=== PATIENT | male | born 1975 | race American Indian/Alaskan Native ===

== ENCOUNTER → 2019-09-13 12:07 | Outpatient (CLI) | payer OTHER, SELFPAY ==
[2019-09-15 04:11] LABS: COVID19 Sendout Not Detected (Not Detected)
== END ==
PROVIDERS: PCP Family Medicine; Visit Provider Family Medicine
DX: R05 Cough (principal)
CPT/HCPCS: 87635

== ENCOUNTER → 2019-10-17 14:37 | Outpatient (CLI) | payer OTHER, SELFPAY | PROVIDERS: PCP Family Medicine; Visit Provider Family Medicine | DX: R31.9 Hematuria, unspecified (principal) | CPT/HCPCS: 87086 ==

== ENCOUNTER → 2021-01-21 09:03 | Outpatient (CLI) | payer OTHER, SELFPAY ==
[2021-01-21 09:49] LABS: Add Manual Diff / Slide Review NO; Basophils Absolute Auto 100 /uL (0-100); Basophils Percent Auto 0.6 % (0-2); Eosinophils Absolute Auto 400 /uL (0-450); Eosinophils Percent Auto 4.3 % (2-4); Hematocrit 47.9 % (41-53); Lymphocytes Absolute Auto 2400 /uL (1100-4500); Lymphocytes Percent Auto 25.8 % (25-40); Mean Corpuscular HGB Conc 33.4 % (30-36); Mean Corpuscular Hemoglobin 28.7 PG (26-34); Mean Corpuscular Volume 85.9 fL (80-100); Monocytes Absolute Auto 600 /uL (0-900); Monocytes Percent Auto 6.8 % (3-14); Neutrophils Absolute Auto 5700 /uL (1500-7000); Neutrophils Percent Auto 62.5 % (50-75); Platelet Count 185 X10^3/uL (150-400); Red Blood Cell Count 5.57 X10^6/uL (4.5-5.9); Red Cell Distribution Width 14.8 % (11.6-14.8); White Blood Cell Count 9.2 X10^3/uL (4.5-11.0)
[2021-01-21 10:00] LABS: Hemoglobin A1C% w Est Avg Glu 7.7 % (4.0-6.0)
[2021-01-21 10:05] LABS: Alanine Aminotransferase 37 IU/L (<50); Albumin 4.1 g/dL (3.5-5.0); Albumin Globulin Ratio 1.3 (1.0-2.8); Alkaline Phosphatase 61 U/L (38-126); Aspartate Aminotransferase 27 IU/L (17-59); BUN Creatinine Ratio 15.9 (6-22); Bilirubin Total 0.5 mg/dL (0.2-1.3); Blood Urea Nitrogen 13 mg/dL (9-20); Calcium 9.3 mg/dL (8.4-10.2); Carbon Dioxide 28 mmol/L (22-32); Chloride 107 mmol/L (98-107); Cholesterol 171 mg/dL (140-199); Estimated Glomerular Filt Rate > 60.0 mL/min (>60); Globulin 3.1 g/dL (1.7-4.1); Glucose 140 mg/dL (70-100); HDL Cholesterol 35 mg/dL (40-60); HEMOLYSIS < 15 (0-50); LDL Cholesterol Calculated 78 mg/dL (<100); Potassium 4.1 mmol/L (3.4-5.1); Sodium 141 mmol/L (137-145); Total Protein 7.2 g/dL (6.3-8.2); Triglycerides 292 mg/dL (35-150)
[2021-01-21 10:30] LABS: Free T3, Triiodothyronine Free 3.49 pg/mL (2.77-5.27); Free T4, Direct Thyroxine 0.86 ng/dL (0.78-2.19)
[2021-01-21 10:43] LABS: Thyroid Stimulating Hormone 2.23 uIU/mL (0.47-4.68)
[2021-01-21 11:17] LABS: Creatinine Urine Random 147.1 mg/dL
[2021-01-21 11:20] LABS: Microalbumi Creatinin Ratio Ur 46.2 ug/mg CR (<30); Microalbumin Urine Random 6.8 mg/dL (0-1.6)
== END ==
PROVIDERS: PCP Family Medicine; Referring Provider Family Medicine; Visit Provider Family Medicine
DX: E11.9 Type 2 diabetes mellitus without complications (principal); Z79.4 Long term (current) use of insulin
CPT/HCPCS: 36415; 80053; 80061; 82043; 82570; 83036; 84439; 84443; 84481; 85025

== ENCOUNTER → 2021-04-11 11:07 | Outpatient (CLI) | payer OTHER, SELFPAY ==
[2021-04-11 12:08] LABS: COVID19 -Nasal RAPID Negative (Negative)
== END ==
PROVIDERS: PCP Family Medicine; Visit Provider Physician Assistant
DX: Z20.822 Contact with and (suspected) exposure to COVID-19 (principal)
CPT/HCPCS: 87635

== ENCOUNTER → 2021-04-24 11:37 | Outpatient (CLI) | payer OTHER, SELFPAY ==
[2021-04-24 12:36] LABS: Hemoglobin A1C% w Est Avg Glu 7.3 % (4.0-6.0)
== END ==
PROVIDERS: PCP Family Medicine; Referring Provider Family Medicine; Visit Provider Family Medicine
DX: E11.9 Type 2 diabetes mellitus without complications (principal); Z79.4 Long term (current) use of insulin
CPT/HCPCS: 36415; 83036

== ENCOUNTER → 2022-04-03 09:08 | Outpatient (CLI) | payer OTHER, SELFPAY ==
[2022-04-03 10:17] LABS: Add Manual Diff / Slide Review NO; Basophils Absolute Auto 0 /uL (0-100); Basophils Percent Auto 0.5 % (0-2); Eosinophils Absolute Auto 200 /uL (0-450); Eosinophils Percent Auto 2.1 % (2-4); Hematocrit 46.6 % (41-53); Hemoglobin 15.8 g/dL (13.5-17.5); Lymphocytes Absolute Auto 2400 /uL (1100-4500); Lymphocytes Percent Auto 24.3 % (25-40); Mean Corpuscular HGB Conc 33.8 % (30-36); Mean Corpuscular Hemoglobin 28.7 PG (26-34); Mean Corpuscular Volume 84.9 fL (80-100); Monocytes Absolute Auto 600 /uL (0-900); Monocytes Percent Auto 5.7 % (3-14); Neutrophils Absolute Auto 6800 /uL (1500-7000); Neutrophils Percent Auto 67.4 % (50-75); Platelet Count 231 X10^3/uL (150-400); Red Blood Cell Count 5.49 X10^6/uL (4.5-5.9); Red Cell Distribution Width 14.7 % (11.6-14.8)
[2022-04-03 10:29] LABS: Alanine Aminotransferase 38 IU/L (<50); Albumin 4.4 g/dL (3.5-5.0); Albumin Globulin Ratio 1.3 (1.0-2.8); Alkaline Phosphatase 79 U/L (38-126); Aspartate Aminotransferase 27 IU/L (17-59); BUN Creatinine Ratio 15.7 (6-22); Bilirubin Total 0.4 mg/dL (0.2-1.3); Blood Urea Nitrogen 13 mg/dL (9-20); Calcium 8.8 mg/dL (8.4-10.2); Carbon Dioxide 24 mmol/L (22-32); Chloride 106 mmol/L (98-107); Cholesterol 176 mg/dL (140-199); Estimated Glomerular Filt Rate > 60 mL/min (>60); Globulin 3.3 g/dL (1.7-4.1); Glucose 166 mg/dL (70-100); HDL Cholesterol 30 mg/dL (40-60); HEMOLYSIS < 15 (0-50); LDL Cholesterol Calculated 78 mg/dL (<100); Potassium 4.1 mmol/L (3.4-5.1); Sodium 141 mmol/L (137-145); Total Protein 7.7 g/dL (6.3-8.2); Triglycerides 342 mg/dL (35-150)
[2022-04-03 10:30] LABS: Hemoglobin A1C% w Est Avg Glu 7.4 % (4.0-6.0)
[2022-04-03 10:51] LABS: Creatinine Urine Random 192.2 mg/dL
[2022-04-03 10:55] LABS: Microalbumi Creatinin Ratio Ur 16.1 ug/mg CR (<30); Microalbumin Urine Random 3.1 mg/dL (0-1.6)
== END ==
PROVIDERS: PCP Family Medicine; Referring Provider Family Medicine; Visit Provider Family Medicine
DX: E11.9 Type 2 diabetes mellitus without complications (principal); Z79.4 Long term (current) use of insulin
CPT/HCPCS: 36415; 80053; 80061; 82043; 82570; 83036; 85025

== ENCOUNTER 2022-06-15 12:14 | Emergency (ER) | payer OTHER, SELFPAY ==
[2022-06-15 12:19] VITALS: BP 188/113; PULSE 83; RESP 16; O2SAT 97; BMI 52.9
--- NOTE | 2022-06-15 12:28 | DI.CT.S_ITS ---
PROCEDURE: CT ANGIO HEAD AND NECK INDICATIONS: L facial droop TECHNIQUE: Pre-contrast 4.5 mm thick sections acquired from the foramen magnum to the vertex. After the administration of intravenous contrast, 1 mm thick sections acquired from the aortic arch through the [place]. Post-contrast 4.5 mm thick sections then re-acquired from the foramen magnum to the vertex. 3-dimensional bqptelm-tfeggxahx-rktrrdihjr (MIP) and/or volume rendering reformats were acquired of the central intracranial vasculature and neck separately. For radiation dose reduction, the following was used: automated exposure control, adjustment of mA and/or kV according to patient size. COMPARISON: None. FINDINGS: Image quality: Excellent. BRAIN: CSF spaces: Ventricles are normal in size and shape. Basal cisterns are patent. No extra-axial fluid collections. Brain: No midline shift. No intracranial bleeds or masses. Cope-white matter interface appears intact. Skull and face: Calvarium and facial bones appear intact, without suspicious lesions. Orbits appear normal. Sinuses: Sinuses and mastoids are clear. HEAD CT ANGIOGRAPHY: Anterior circulation: Intracranial internal carotid arteries are normal in size and flow. The flow within the paired anterior cerebral arteries is normal and symmetric. The flow within the middle cerebral arteries is normal and symmetric. The anterior communicating artery is seen. No aneurysms are seen. Posterior circulation: Visualized portions of the vertebral arteries demonstrate normal caliber, and join to form a normal appearing basilar artery. Flow within the posterior cerebral arteries is normal and symmetric. No aneurysms are seen. NECK CT ANGIOGRAPHY: Carotid system: The great vessels demonstrate a conventional anatomy as they arise from the aortic arch. The origins of the common carotid arteries appear patent. The common carotid arteries demonstrate normal caliber and courses. The bifurcation regions are both widely patent. The internal carotid arteries demonstrate normal calibers and courses. Posterior circulation: The origins of the vertebral arteries both appear widely patent. The more superior extracranial portions of both vertebral arteries also demonstrate normal courses and calibers. They join to form a normal appearing basilar artery. Soft tissues: Visualized neck soft tissues demonstrate no suspicious abnormalities. Bones: No suspicious bony lesions. Visualized cervical spine appears normally aligned. Cervical degenerative disc disease and arthropathy reversal the normal cervical lordosis and moderate central stenosis C5-6 and C6-7 IMPRESSION: Unremarkable CT angiogram of the head and neck without evidence of large vessel occlusion, significant stenosis or aneurysm. Multilevel degenerative disc disease and arthropathy in the cervical spine associated with at least moderate central stenosis C5-6 and C6-7 Any quantitative measurements of stenosis were performed using NASCET criteria. Approved by: Diaz Gordon M.D. on 06/15/2022 at 12:20
--- NOTE | 2022-06-15 12:28 | DI.RAD.S_ITS ---
PROCEDURE: XR CHEST 1V INDICATIONS: left sided facial droop since last night TECHNIQUE: One view of the chest was acquired. COMPARISON: None. FINDINGS: Surgical changes and devices: None. Lungs and pleura: Lungs are clear. No pleural effusions or pneumothorax. Low lung volumes accentuate pulmonary interstitium and heart size. Mediastinum: Mediastinal contours appear normal. Heart size is normal. Bones and chest wall: No suspicious bony lesions. Overlying soft tissues appear unremarkable. IMPRESSION: No acute cardiopulmonary findings Approved by: Diaz Gordon M.D. on 06/15/2022 at 12:05
[2022-06-15 12:52] LABS: Add Manual Diff / Slide Review NO; Basophils Absolute Auto 100 /uL (0-100); Basophils Percent Auto 1.1 % (0-2); Eosinophils Absolute Auto 200 /uL (0-450); Eosinophils Percent Auto 1.5 % (2-4); Hematocrit 46.1 % (41-53); Hemoglobin 15.6 g/dL (13.5-17.5); Lymphocytes Absolute Auto 2800 /uL (1100-4500); Lymphocytes Percent Auto 25.2 % (25-40); Mean Corpuscular HGB Conc 33.8 % (30-36); Mean Corpuscular Hemoglobin 28.6 PG (26-34); Mean Corpuscular Volume 84.6 fL (80-100); Monocytes Absolute Auto 600 /uL (0-900); Monocytes Percent Auto 5.5 % (3-14); Neutrophils Absolute Auto 7300 /uL (1500-7000); Neutrophils Percent Auto 66.7 % (50-75); Platelet Count 230 X10^3/uL (150-400); Red Blood Cell Count 5.45 X10^6/uL (4.5-5.9); Red Cell Distribution Width 14.2 % (11.6-14.8); White Blood Cell Count 10.9 X10^3/uL (4.5-11.0)
[2022-06-15 13:02] LABS: PTT Partial Thromboplastin Tim 42 SECONDS (26-36)
[2022-06-15 13:03] LABS: Alanine Aminotransferase 41 IU/L (<50); Albumin 4.4 g/dL (3.5-5.0); Albumin Globulin Ratio 1.3 (1.0-2.8); Alkaline Phosphatase 72 U/L (38-126); Aspartate Aminotransferase 27 IU/L (17-59); BUN Creatinine Ratio 14.8 (6-22); Bilirubin Total 0.7 mg/dL (0.2-1.3); Blood Urea Nitrogen 13 mg/dL (9-20); Calcium 9.4 mg/dL (8.4-10.2); Carbon Dioxide 27 mmol/L (22-32); Chloride 102 mmol/L (98-107); Creatine Kinase 83 U/L (55-170); Estimated Glomerular Filt Rate > 60 mL/min (>60); Globulin 3.4 g/dL (1.7-4.1); Glucose 181 mg/dL (70-100); HEMOLYSIS 16 (0-50); Lipase 72 U/L (23-300); Magnesium 1.9 mg/dL (1.6-2.3); Sodium 140 mmol/L (137-145); Total Protein 7.8 g/dL (6.3-8.2)
[2022-06-15 13:14] LABS: Troponin I < 0.012 ng/mL (0.01-0.034)
--- NOTE | 2022-06-15 14:31 | ED.NEUROSD ---
HPI - Neuro Symptoms/Deficit General Chief Complaint: Neuro Symptoms/Deficit Stated Complaint: numbness on left side of face Time Seen by Provider: 06/15/22 12:46 History of Present Illness HPI Narrative: Patient is a 46-year-old male history of diabetes hypertension presenting today with left-sided facial droop. He said he noticed he had difficulty eating last night and that his left lip numb. He has not had any difficulty speaking his has not noticed any gibberish. This morning he is having a difficult time closing his eye. He has no other weakness no chest pain shortness of breath. Under lot of stress at work. He is not had any fever chills. He denies any abdominal pain. On Anticoagulants: No Related Data Previous Rx's Medication Instructions Recorded bupropion HCl 75 mg tablet See Rx Instructions .Route 03/25/21 .COMPLEX #60 tabs albuterol sulfate 0.63 mg/3 mL 0.63 mg (3 mL) inhalation QID PRN 04/24/21 solution for nebulization shortness of breath or wheezing #75 mL loratadine-pseudoephedrine ER 10 1 tab PO DAILY PRN allergy 09/20/21 mg-240 mg tablet,extended symptoms #14 tabs [id number] (Claritin-D 24 Hour) albuterol sulfate 2.5 mg/3 mL See Rx Instructions .Route 11/15/21 (0.083 %) solution for nebulization .COMPLEX #75 mL insulin syringes (disposable) 1 mL #500 ea 01/09/22 albuterol sulfate 90 mcg/actuation See Rx Instructions .Route 03/17/22 aerosol inhaler .COMPLEX #18 grams lisinopril 10 mg tablet 10 mg PO DAILY #90 tabs 03/17/22 atorvastatin 10 mg tablet 10 mg PO BEDTIME #90 tabs 04/07/22 insulin human U-100 NPH-regulr See Rx Instructions .Route 04/07/22 70-30 mix 100 unit/mL subcutaneous .COMPLEX #60 mL susp (Humulin 70/30 U-100 Insulin) acyclovir 800 mg tablet 800 mg PO 5XD #35 tabs 06/15/22 artificial tears(hypromellose) 0.3 2 drp EYE-LEFT .q4hw PRN dry 06/15/22 % eye drops eye(s) #30 mL prednisone 20 mg tablet 40 mg PO DAILY #10 tabs 06/15/22 white petrolatum-mineral oil 83 0.25 inch EYE-LEFT BEDTIME #3.5 06/15/22 %-15 % eye ointment (Artificial grams Tears (petrolatum/mineral oil)) Allergies Allergy/AdvReac Type Severity Reaction Status Date / Time No Known Drug Allergies Allergy Verified 09/20/21 10:30 Review of Systems Review of Systems ROS Unobtainable: All systems reviewed & are unremarkable except as noted in HPI and below Hematologic/Lymphatic On Anticoagulants: No Patient History Medical History (Updated 06/15/22 @ 15:06 by Jess Dominguez DO) Asthma with exacerbation BMI 50.0-59.9, adult Depression HTN (hypertension) Hypertriglyceridemia without hypercholesterolemia Insulin dependent type 2 diabetes mellitus PREST[place] on CPAP Otitis media Urinary tract infection Weight loss advised Family History Father Cancer Mother Cancer Diabetes mellitus Hyperlipidemia Hypertension Depression Stroke Social History Smoking Status: Former smoker alcohol intake: current substance use type: marijuana Smoking Status: Former smoker Exam Initial Vital Signs Initial Vital Signs: Vital Signs Pulse Rate 83 06/15/22 12:19 Respiratory Rate 16 06/15/22 12:19 Blood Pressure 188/113 H 06/15/22 12:19 Pulse Oximetry 97 06/15/22 12:19 Oxygen Delivery Method 06/15/22 12:19 GENERAL: Alert pleasant 46-year-old male and in no acute distress. HEENT: Head atraumatic,EOMI, pupils reactive, left-sided facial droop noted, inability to close left eye CARDIOVASCULAR: Regular rate and rhythm without murmurs, rubs or gallops. RESPIRATORY: Breath sounds equal bilaterally, no wheezes rales or rhonchi. ABDOMEN: Soft, nontender. Normoactive bowel sounds all 4 quadrants. No guarding or rebound. EXTREMITIES: Normal range of motion, no clubbing or edema. Neurovascularly intact NEUROLOGICAL: Alert and oriented x4.Normal gait and speech. Cranial nerves II through XII grossly intact. Good oqgreq-rs-rrbn, good lxvv-zt-uqcd, strength equal bilaterally, no dysarthria or aphasia, sensation in tact to soft touch bilaterally, no visual changes, left facial droop inability to wrinkle left forehead inability to close left eye SKIN: Warm, dry, no laceration, no petechiae, no rashes or lesions. Scores NIH Stroke Scale Level of Conciousness: Alert, keenly responsive Ask month/age: Answers both questions correctly. Open/close eyes, close hand: Performs both tasks correctly Best gaze horizontal: Normal Visual arriaga: No visual loss Facial palsy: Complete paralysis, absence of movement in the upper and lower face (Partial paralysis of both upper and lower face) Left arm drift: No drift for full 10 sec Right arm drift: No drift for full 10 sec Left leg drift: No drift for full 5 sec Right leg drift: No drift for full 5 sec Limb ataxia: Absent Sensory on face/arms/legs: Normal, no sensory loss Best language: No aphasia, normal Dysarthria: Normal Extinction or inattention: No abnormality Total NIH Stroke scale score: 3 Course Orders Ordered: ED Orders 06/15/22 12:28 CT angio head and neck Stat XR chest 1V Stat EKG-12 Lead Stat 06/15/22 12:34 Complete Blood Count AUTO DIFF Stat Comprehensive Metabolic Panel Stat Lipase Stat Magnesium Stat Partial Thromboplastin Time Stat Prothrombin Time INR Stat Troponin & CK Cardiac Panel Stat Vital Signs Vital signs: Vital Signs - 8 hr 06/15/22 12:19 06/15/22 15:18 Pulse Rate 83 80 Respiratory Rate 16 16 Blood Pressure 188/113 H 176/108 H Pulse Oximetry 97 97 Oxygen Delivery Method Room Air Room Air MDM - Neuro Symptoms/Deficit Lab Data Result diagrams: 06/15/22 12:34 06/15/22 12:34 Labs: Lab Results 06/15/22 06/15/22 06/15/22 Range/Units 12:34 12:34 12:34 WBC 10.9 (4.5-11.0) X10^3/uL RBC 5.45 (4.5-5.9) X10^6/uL Hgb 15.6 (13.5-17.5) g/dL Hct 46.1 (41-53) % MCV 84.6 (80-100) fL MCH 28.6 (26-34) PG MCHC 33.8 (30-36) % RDW 14.2 (11.6-14.8) % Plt Count 230 (150-400) X10^3/uL Neut % (Auto) 66.7 (50-75) % Lymph % (Auto) 25.2 (25-40) % [place] % (Auto) 5.5 (3-14) % Eos % (Auto) 1.5 L (2-4) % Baso % (Auto) 1.1 (0-2) % Neut # (Auto) 7300 H (4290-9915) /uL Lymph # (Auto) 2800 (4647-4456) /uL [place] # (Auto) 600 (0-900) /uL Eos # (Auto) 200 (0-450) /uL Baso # (Auto) 100 (0-100) /uL PT 12.0 (10.1-12.7) SECONDS INR 1.0 (0.9-1.3) APTT 42 H (26-36) SECONDS Sodium 140 (137-145) mmol/L Potassium 4.0 (3.4-5.1) mmol/L Chloride 102 (98-107) mmol/L Carbon Dioxide 27 (22-32) mmol/L BUN 13 (9-20) mg/dL Creatinine 0.88 (0.66-1.25) mg/dL Estimated GFR > 60 (>60) mL/min BUN/Creatinine Ratio 14.8 (6-22) Glucose 181 H (70-100) mg/dL Calcium 9.4 (8.4-10.2) mg/dL Magnesium 1.9 (1.6-2.3) mg/dL Total Bilirubin 0.7 (0.2-1.3) mg/dL AST 27 (17-59) IU/L ALT 41 (<50) IU/L Alkaline Phosphatase 72 (38-126) U/L Total Creatine Kinase 83 (55-170) U/L CK-MB (CK-2) TNP CK-MB (CK-2) Rel Index TNP Troponin I < 0.012 (0.01-0.034) ng/mL Total Protein 7.8 (6.3-8.2) g/dL Albumin 4.4 (3.5-5.0) g/dL Globulin 3.4 (1.7-4.1) g/dL Albumin/Globulin Ratio 1.3 (1.0-2.8) Lipase 72 (23-300) U/L Imaging Data CTA - brain/neck: Radiologist's Impression: CT Scan Report Signed Patient: Grayson López MR#: [id number] : 1975 Acct:[id number] Age/Sex: 46 / M Date of Service: 06/15/22 Loc: ED Accession Number: [id number] ?? Procedure: CT angio head and neck Ordering Provider: Jess Dominguez D.O. PROCEDURE:? CT ANGIO HEAD AND NECK ? INDICATIONS:? L facial droop ? TECHNIQUE:? Pre-contrast 4.5 mm thick sections acquired from the foramen magnum to the vertex.? After the administration of intravenous contrast, 1 mm thick sections acquired from the aortic arch through the [place].? Post-contrast 4.5 mm thick sections then re-acquired from the foramen magnum to the vertex.? 3-dimensional trxmwpk-refdrkcrl-jrmgjlikuc (MIP) and/or volume rendering reformats were acquired of the central intracranial vasculature and neck separately. For radiation dose reduction, the following was used:? automated exposure control, adjustment of mA and/or kV according to patient size.? ? COMPARISON:? None. ? FINDINGS:? Image quality:? Excellent.? ? BRAIN:? CSF spaces:? Ventricles are normal in size and shape.? Basal cisterns are patent.? No extra-axial fluid collections.? ? Brain:? No midline shift.? No intracranial bleeds or masses.? Cope-white matter interface appears intact.? ? Skull and face:? Calvarium and facial bones appear intact, without suspicious lesions.? Orbits appear normal.? ? Sinuses:? Sinuses and mastoids are clear.? ? HEAD CT ANGIOGRAPHY:? Anterior circulation:? Intracranial internal carotid arteries are normal in size and flow.? The flow within the paired anterior cerebral arteries is normal and symmetric.? The flow within the middle cerebral arteries is normal and symmetric.? The anterior communicating artery is seen.? No aneurysms are seen.? ? Posterior circulation:? Visualized portions of the vertebral arteries demonstrate normal caliber, and join to form a normal appearing basilar artery.? Flow within the posterior cerebral arteries is normal and symmetric.? No aneurysms are seen.? ? NECK CT ANGIOGRAPHY:? Carotid system:? The great vessels demonstrate a conventional anatomy as they arise from the aortic arch.? The origins of the common carotid arteries appear patent.? The common carotid arteries demonstrate normal caliber and courses.? The bifurcation regions are both widely patent.? The internal carotid arteries demonstrate normal calibers and courses.? ? Posterior circulation:? The origins of the vertebral arteries both appear widely patent.? The more superior extracranial portions of both vertebral arteries also demonstrate normal courses and calibers.? They join to form a normal appearing basilar artery.? ? Soft tissues:? Visualized neck soft tissues demonstrate no suspicious abnormalities.? ? Bones:? No suspicious bony lesions.? Visualized cervical spine appears normally aligned.? Cervical degenerative disc disease and arthropathy reversal the normal cervical lordosis and moderate central stenosis C5-6 and C6-7 ? ? IMPRESSION:? ? Unremarkable CT angiogram of the head and neck without evidence of large vessel occlusion, significant stenosis or aneurysm. ? Multilevel degenerative disc disease and arthropathy in the cervical spine associated with at least moderate central stenosis C5-6 and C6-7 ? Any quantitative measurements of stenosis were performed using NASCET criteria.? Approved by: Diaz Gordon M.D. on 06/15/2022 at 12:20? Chest x-ray: Radiologist's Impression: Grayson saldaña MR#: [id number] : 1975 Acct:[id number] Age/Sex: 46 / M Date of Service: 06/15/22 Loc: ED Accession Number: [id number] ?? Procedure: XR chest 1V Ordering Provider: Jess Dominguez D.O. PROCEDURE:? XR CHEST 1V ? INDICATIONS:? left sided facial droop since last night ? TECHNIQUE:? One view of the chest was acquired.? ? COMPARISON:? None. ? FINDINGS:? ? Surgical changes and devices:? None.? ? Lungs and pleura:? Lungs are clear.? No pleural effusions or pneumothorax.? Low lung volumes accentuate pulmonary interstitium and heart size. ? Mediastinum:? Mediastinal contours appear normal.? Heart size is normal.? ? Bones and chest wall:? No suspicious bony lesions.? Overlying soft tissues appear unremarkable.? ? IMPRESSION:? No acute cardiopulmonary findings ? ? ? Approved by: Diaz Gordon M.D. on 06/15/2022 at 12:05? ECG Data Interpretation: Normal sinus rhythm rate 64 MN interval 170 QRS [address] changes no T-wave inversions MDM Narrative Medical decision making narrative: Patient is a 46-year-old male with obesity hypertension diabetes presenting today left-sided facial droop that started yesterday. He is outside the window for any tPA he has no other focal deficits. Actually presents more like a Elise's palsy with inability close eye and forehead involvement. Workup in the emergency department is negative. Head CT angio does not show any large vessel occlusion. Blood work is overall reassuring without sign of DKA or acute kidney injury or cardiac problem. At this time based on cyst symptoms I suspect more of a Elise's palsy versus CVA. Supportive care only given antivirals prednisone and artificial eyedrops Discharge Plan Departure Patient Disposition: Home Clinical Impression: Left-sided Elise's palsy Instructions: DI for [place] Palsy Activity Restrictions/Additional Instructions: *You have been diagnosed with Elise's palsy *What to do: At this time I hope this spontaneously improves for you, it can last for weeks to months. *Continue to take medications as directed --> SENT TO [facility] [place] Prednisone 40 mg once a day for 5 days this can cause increase in your blood sugars you may need more insulin Acyclovir 5 times a day for 7 days Artificial eyedrops every 3 hours while awake try the ointment at night he may also need an eye patch at night *Follow up with your primary care provider in 2-3 days or call [phone] *Return to ER if you should have increasing symptoms weakness numbness tingling chest pain fever or any new, worsening or concerning symptoms Prescriptions: New prednisone 20 mg tablet 40 mg PO DAILY Qty: 10 0RF acyclovir 800 mg tablet 800 mg PO 5XD Qty: 35 0RF Rx Instructions: space evenly during waking hours artificial tears(hypromellose) 0.3 % drops 2 drp EYE-LEFT .q4hw PRN (Reason: dry eye(s)) Qty: 30 0RF Artificial Tears ([place]/min) 83-15 % ointment 0.25 inch EYE-LEFT BEDTIME Qty: 3.5 0RF No Action loratadine-pseudoephedrine [Claritin-D 24 Hour] 10-240 mg tablet extended release 24 hr 1 tab PO DAILY PRN (Reason: allergy symptoms) Qty: 14 0RF bupropion HCl 75 mg tablet See Rx Instructions .ROUTE .COMPLEX Qty: 60 5RF Dose Instruction: take one tablet by mouth daily for 1 week, then increase to one tablet twice daily if needed Rx Instructions: take one tablet by mouth daily for 1 week, then increase to one tablet twice daily if needed albuterol sulfate 2.5 mg /3 mL (0.083 %) solution for nebulization See Rx Instructions .ROUTE .COMPLEX Qty: 75 1RF Dose Instruction: inhale one vial (2.5mg) via nebulizer four times daily As Needed for shortness of breath or wheezing Rx Instructions: inhale one vial (2.5mg) via nebulizer four times daily As Needed for shortness of breath or wheezing (DME) insulin syringes (disposable) 1 mL syringe See Rx Instructions .Route Qty: 500 3RF Rx Instructions: For twice a day insulin injections atorvastatin 10 mg tablet 10 mg PO BEDTIME Qty: 90 3RF Humulin 70/30 U-100 Insulin 100 unit/mL (70-30) suspension See Rx Instructions .ROUTE .COMPLEX Qty: 60 11RF Dose Instruction: inject 80 units subcutaneously every morning and 60 units every night at bedtime Rx Instructions: inject 80 units subcutaneously every morning and 60 units every night at bedtime albuterol sulfate 0.63 mg/3 mL solution for nebulization 0.63 mg inhalation QID PRN (Reason: shortness of breath or wheezing) Qty: 75 0RF lisinopril 10 mg tablet 10 mg PO DAILY Qty: 90 1RF albuterol sulfate 90 mcg/actuation HFA aerosol inhaler See Rx Instructions .ROUTE .COMPLEX Qty: 18 11RF Dose Instruction: INHALE TWO PUFFS BY MOUTH EVERY SIX HOURS NEEDED FOR WHEEZING or shortness of breath Rx Instructions: INHALE TWO PUFFS BY MOUTH EVERY SIX HOURS NEEDED FOR WHEEZING or shortness of breath Referrals: Trung Helton DO [Primary Care Provider] -
[2022-06-15 15:18] VITALS: BP 176/108; PULSE 80; RESP 16; O2SAT 97
== END 2022-06-15 15:20 | disposition home or self-care (01) ==
PROVIDERS: Emergency Provider Emergency Medicine; PCP Family Medicine
DX: G51.0 Bell's palsy (principal); R29.703 NIHSS score 3; Z79.899 Other long term (current) drug therapy
CPT/HCPCS: 70496; 70498; 71045; 80053; 82550; 83690; 83735; 84484; 85025; 85610; 85730; 93005; 99283; 99284; Q9967

== ENCOUNTER → 2022-07-10 09:45 | Outpatient (CLI) | payer OTHER, SELFPAY ==
--- NOTE | 2022-07-25 16:58 | DIAB.MNT ---
Initial Diabetes Medical Nutrition Therapy Assessment Name: Grayson López (Rivas) Date: 07/10/22 Time: -9259r Dx: Type II Diabetes Provider: Danie Hathaway presents for initial diabetes visit. States he has had DM for 10 years. Has lost weight since dx, 425# at dx. States with 100# loss he was able to adequate manage BG with diet. Endorses life stress as main barrier to health changes. Easier to choose eating out/fast food when feeling stressed. Reports mental health concerns with his . has two children. 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 H/o utilizing counseling. Considering [facility] for resources. Feels he needs coping strategies. Stress also with health concerns. Recent h/o [place] Palsy, much improved now. States men in his family usually do not live past 60 years. FH of ETOH and DM. Feels motivated to manage his health to live longer. Tried Metformin, could not tolerate GI SE. Reports when he makes healthy food choices he does not need much insulin. Diet Recall: 730a: breakfast burrito at [employer] 12p: [employer] or sub sandwich or grocery store chx dinner: cooks beef with veg and 1c potatoes or veggies and fish with 1c mac salad eats out twice per day: breakfast and lunch Avoids snack or has low carb options: pickled veg, pork rinds Anthropometrics: Ht: 5'11 Wt: 379# last PCP visit Physical Activity: 3000 steps per day with work. 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 Reports BG over 200 he feels fatigue. If HS BG is 100-130mg/dl, does not take insulin. Diabetes Medications: NPH 70/30 100u in morning and 160u in evening Pertinent Labs: hgA1c 03/2022 7.4% Past Medical History: (Last Updated 04/07/22 @ 10:25 by Trung Helton DO) Asthma with exacerbation BMI 50.0-59.9, adult Depression HTN (hypertension) Hypertriglyceridemia without hypercholesterolemia Insulin dependent type 2 diabetes mellitus [place] on CPAP Otitis media Urinary tract infection Weight loss advised Nutrition Rx: CCD, Plate Method Nutrition Diagnosis: - Predicted excessive CHO intake r/t stress and stage of change aeb diet recall and pt report - Physical inactivity r/t no additional exercise program aeb pt report <7000 steps per day - Predicted excessive kcal intake r/t eating out occurrences aeb pt report Intervention: This participant was very receptive. Provided appropriate educational handouts. Discussed the following topics: Completed intake assessment. Discussed barriers to care. Reviewed lunch ideas and reducing eating out Counseling resources and link of mental health and DM BG goals and trends Potential stress management techniques Created SMART goals for patient self-care and success. Goals: Check out clinic counseling Bring lunch 2 x per week Bring meter next visit Follow-up: [facility] follow-up in 3-4 weeks Inge Doss RDN, [facility]ENE Certified Diabetes Care and Window/Distribution Clerk P: [phone] Thank you for this referral
== END ==
PROVIDERS: PCP Family Medicine; Referring Provider Family Medicine; Visit Provider Family Medicine
DX: E11.9 Type 2 diabetes mellitus without complications (principal); Z71.3 Dietary counseling and surveillance; Z79.4 Long term (current) use of insulin
CPT/HCPCS: 97802

== ENCOUNTER → 2022-08-05 09:49 | Outpatient (CLI) | payer OTHER, SELFPAY ==
--- NOTE | 2022-08-05 11:24 | DIAB.MNTFU ---
Follow-up Diabetes Medical Nutrition Therapy Assessment Name: Grayson López (Rivas) Date: 08/05/22 Time: 10-1050a Dx: Type II Diabetes Rivas presents today for DM follow-up. Reports improved lunches with cooking more at work 2-3x per week. Finances is a concern, so he has been trying to eat out less and choose affordable options at the grocery store. cooking more pro and veggies for lunch. Reports his most challenging time with BG and food portions is at dinner. cooks. Often frozen or canned veg with pro and carb (rice or noodles x 2c or more). 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 Enjoys cooked meals. Stress may be the main factor in his ability to manage diet and DM. Slight increase in stress at work with new work order system, but states they are trying to hire someone for him. Has not yet researched counseling options. Feels it may be beneficial to bring to next visit for meal planning. Anthropometrics: Ht: 5'11 Wt: 379# last PCP visit Physical Activity: 3000 steps per day with work. 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 Self-Monitoring Blood Glucose: Continues to check FBG and pre dinner, some after dinner. Reports FBG often low 100s, pre dinner 160s, and after dinner often in 200s due to carb portions. Forgot his meter today. Diabetes Medications: NPH 70/30 100u in morning and 160u in evening Pertinent Labs: hgA1c 03/2022 7.4% Past Medical History: (Last Updated 04/07/22 @ 10:25 by Trung Helton DO) Asthma with exacerbation BMI 50.0-59.9, adult Depression HTN (hypertension) Hypertriglyceridemia without hypercholesterolemia Insulin dependent type 2 diabetes mellitus PRESTON on CPAP Otitis media Urinary tract infection Weight loss advised Nutrition Rx: Kcal: 2100-220 Carbohydrates: Daily: 130-230g Meal: 45-60g Snack:15-30g Nutrition Diagnosis: - Predicted excessive CHO intake r/t stress and stage of change aeb diet recall and pt report- improved/in progress - Physical inactivity r/t no additional exercise program aeb pt report <7000 steps per day- cont - Predicted excessive kcal intake r/t eating out occurrences aeb pt report - improved Intervention: This participant was very receptive. Provided appropriate educational handouts. Discussed the following topics: Blood sugar review and trends. Impact of food intake on results. Plate Method, brief carbohydrate counting-- will go into detail next visit Affordable veggie options Stress management resources: provided [facility] phone numbers for counseling Created SMART goals for patient self-care and success. Goals: Check out clinic counseling- in progress Bring lunch 2 x per week- met Bring meter next visit- not met Bring to next visit for meal planning- new Measure carbs at dinner to 1.5c - new Call counseling numbers- new Follow-up: [facility] follow-up in 3 weeks Inge Doss RDN, [facility] Certified Diabetes Care and Embedded Developer P: [phone] Thank you for this referral
== END ==
PROVIDERS: PCP Family Medicine; Referring Provider Family Medicine; Visit Provider Family Medicine
DX: E11.9 Type 2 diabetes mellitus without complications (principal); Z79.4 Long term (current) use of insulin; Z71.3 Dietary counseling and surveillance
CPT/HCPCS: 97803

== ENCOUNTER → 2022-08-28 10:21 | Outpatient (CLI) | payer OTHER, SELFPAY ==
--- NOTE | 2022-09-12 09:10 | DIAB.FU ---
Follow-up Diabetes Education Assessment Name: Grayson López (Rivas) Date: 08/28/22 Time: 10:40-11:50 am Dx: Type II Diabetes Rivas presents for follow-up DM visit. States he still is stressed with work and home life. Reports he called [facility] for counseling information a few days ago and is waiting on insurance and provider referral. States finances have been difficult lately. Due to this he endorses increased rice and noodle intake. Continues to have stir trejo veggies and chicken for lunch at work. Successful in bringing lunch to work at least 2x per week, less eating out. Today he is increasingly stressed about home life and dynamic with . The intention was to have his attend today's visit for meal planning, but she was unable to attend. BG have increased this week, he attributes this to increased carb intake. May also be impacted by increased stress, stress eating? Interested in CGM. Self-Monitoring Blood Glucose: significant increase in BG since last visit. Reported low 100s for FBG last visit. now seeing some 200s. Date Pre Post Pre Post Pre Post HS 08/19 201 3/8 152 3/9 234 /10 132 /14 154 /15 220 16 178 Diabetes Medications: NPH 70/30 100u in morning and 160u in evening Pertinent Labs: hgA1c 03/2022 7.4% Past Medical History: (Last Updated 04/07/22 @ 10:25 by Trung Helton DO) Asthma with exacerbation BMI 50.0-59.9, adult Depression HTN (hypertension) Hypertriglyceridemia without hypercholesterolemia Insulin dependent type 2 diabetes mellitus PRESTON on CPAP Otitis media Urinary tract infection Weight loss advised Intervention: This participant was very receptive. Provided appropriate educational handouts. Discussed the following topics: Recent blood sugar results and trends Impact of stress and carb intake on recent results Ways to mitigate high carb intake at meals on a budget Stress management and following up on therapy resources Potential for CGM personal device. Benefits and use of CGM. Created SMART goals for patient self-care and success. Goals: Bring to next visit for meal planning- in progress Measure carbs at dinner to 1.5c - in progress Call counseling numbers- met Follow up with [facility] today- new Contact provider prn for referral for therapy- new Follow-up: [facility] follow-up in 4 weeks Inge Doss RDN, [facility] Certified Diabetes Care and Ribbon Hand P: [phone] Thank you for this referral
== END ==
PROVIDERS: PCP Family Medicine; Referring Provider Family Medicine; Visit Provider Family Medicine
DX: E11.9 Type 2 diabetes mellitus without complications (principal); Z79.4 Long term (current) use of insulin; Z71.3 Dietary counseling and surveillance
CPT/HCPCS: G0108

== ENCOUNTER → 2022-10-01 14:50 | Outpatient (CLI) | payer OTHER, SELFPAY ==
--- NOTE | 2022-10-09 08:34 | DIAB.FU ---
Follow-up Diabetes Education Assessment Name: Grayson López (Rivas) Date: 10/01/22 Time: 325-350p Dx: Type II Diabetes Provider: Danie Hathaway presents today for follow-up DM visit. States he started counseling. States BG have been in the low 200s due to being somewhat inconsistent with insulin at night. Continues same regimen of NPH 70/30 100u am and 160u pm. Interested in CGM placement today to know how BG are being impacted by lifestyle and medication. Self-Monitoring Blood Glucose: Low 200s. Higher than last visit with most FBG 150-200mg/dl. Diabetes Medications: NPH 70/30 100u in morning and 160u in evening Pertinent Labs: hgA1c 03/2022 7.4% Past Medical History: (Last Updated 04/07/22 @ 10:25 by Trung Helton, DO) Asthma with exacerbation BMI 50.0-59.9, adult Depression HTN (hypertension) Hypertriglyceridemia without hypercholesterolemia Insulin dependent type 2 diabetes mellitus PRESTON on CPAP Otitis media Urinary tract infection Weight loss advised Intervention: This participant was very receptive. Provided appropriate educational handouts. Discussed the following topics: Recent blood sugar results and trends Medication management, setting alarms for insulin CGM education, demo of placement, pt placed CGM and verbalized understanding of use (FSL2). Created SMART goals for patient self-care and success. Goals: Follow up with [facility] today- met Contact provider prn for referral for therapy- met Email [facility] about CGM in one week- new Set alarms for insulin- new Follow-up: [facility] follow-up in 3-4 weeks. If Rivas likes the CGM, [facility] will coordinate with provider about ordering personal CGM for more BG awareness and hopefully improved management. Inge Doss RDN, [facility] Certified Diabetes Care and Art Department Head P: [phone] Thank you for this referral
== END ==
PROVIDERS: PCP Family Medicine; Referring Provider Family Medicine; Visit Provider Family Medicine
DX: E11.9 Type 2 diabetes mellitus without complications (principal); Z79.4 Long term (current) use of insulin; Z71.3 Dietary counseling and surveillance
CPT/HCPCS: G0108

== ENCOUNTER → 2022-11-20 12:51 | Outpatient (CLI) | payer OTHER, SELFPAY ==
--- NOTE | 2022-12-04 11:39 | DIAB.FU ---
Follow-up Diabetes Education Assessment Name: Grayson López (Rivas) Date: 11/20/22 Time: 105-2p Dx: Type II Diabetes Rivas presents for DM follow-up. Reports continued stress with personal life and work. Continues seeing counselor, which he feels is effective. Also reports kipping dinner a few times this week when is not up for cooking. Has been working on reducing carbs at lunch, ie tuna salad on lettuce. Notices improved BG with preparing his own lunch vs eating out. Eating out 3x per week, which historically is an improvement. Cut out diet soda and coffee. Increased water to 1/2 gallon per day. Reports BP has been running higher, and states he is not taking BP med due to Se of cough. Reports PMH of opiate abuse, and he feels pills can be a trigger for him. Rather injections. Taking HS insulin more consistently. Since he is on two injections of 70/30 per day, not 3, his insurance will not cover CGM. Plans to discuss options with provider. Self-Monitoring Blood Glucose: Reports evening readings and after breakfast in the 200s. When he was wearing FSL CGM numbers seemed improved, though was having lunch elevations. Diabetes Medications: NPH 70/30 100u in morning and 160u in evening Pertinent Labs: hgA1c 03/2022 7.4% Past Medical History: (Last Updated 04/07/22 @ 10:25 by Trung Helton DO) Asthma with exacerbation BMI 50.0-59.9, adult Depression HTN (hypertension) Hypertriglyceridemia without hypercholesterolemia Insulin dependent type 2 diabetes mellitus PRESTON on CPAP Otitis media Urinary tract infection Weight loss advised Intervention: This participant was very receptive. Provided appropriate educational handouts. Discussed the following topics: Recent blood sugar results and trends Medication management: potential for change in regimen if medically necessary to improve BG and also would qualify for CGM through insurance, discuss with provider Review of general nutrition recommendations and current intake Stress management and BG BP and DM impact on complication risk Created SMART goals for patient self-care and success. Goals: Call [facility] about status of CGM approval- met Take HS insulin consistently- met Reduce lunch portions- met Chat with PCP about BP med Se and options- new Try to incorporate some you time for stress management- new Follow-up with [facility] regarding CGM if insulin regimen changes- new Follow-up: [facility] follow-up recommended. This RD will be on leave until Nov. Will follow-up at that time. Provided potential resources for support in the interim. Inge Doss, [facility] Certified Diabetes Care and Addressing Machine Operator P: [phone] Thank you for this referral
== END ==
PROVIDERS: Family Provider Family Medicine; PCP Family Medicine; Referring Provider Family Medicine; Visit Provider Family Medicine
DX: E11.9 Type 2 diabetes mellitus without complications (principal); Z79.4 Long term (current) use of insulin; Z71.3 Dietary counseling and surveillance
CPT/HCPCS: G0108

== ENCOUNTER 2023-04-21 08:11 | Day surgery (SDC) | payer OTHER, SELFPAY ==
--- NOTE | 2023-04-21 | PATH_ITS ---
[facility] Accession Number: [id number] No. of containers..03 Tissue . 01 Material submitted: . PART A: colon - ASCENDING POLYP PART B: colon - TRANSVERSE POLYP PART C: sigmoid colon - SIGMOID POLYP . 01 Diagnosis: A. COLON, ASCENDING, POLYP BIOPSY: - TUBULAR ADENOMA. -- B. COLON, TRANSVERSE, POLYP BIOPSY: - SESSILE SERRATED ADENOMA. -- C. COLON, SIGMOID, POLYP BIOPSY: - NO POLYP IS SEEN DESPITE MULTIPLE LEVELS ASSESSMENT. - FIBROVASCULAR TISSUE, AND ONE BENIGN COLONIC CRYPT IS SEEN. TXN 04/30/2023 1044 Local . 01 Electronically signed: . Tawfeq MD Jimbo, Pathologist NPI- [id number] . 01 Gross description: . Part A: ASCENDING POLYP: Received in formalin is 1 fragment(s) of coates, soft tissue measuring 0.4 x 0.4 x 0.3 cm submitted entirely in 1 cassette(s) Part B: TRANSVERSE POLYP: Received in formalin are 3 fragment(s) of coates, soft tissue measuring 0.3 x 0.2 x 0.2 cm to 0.7 x 0.5 x 0.3 cm submitted entirely in 1 cassette(s) Part C: SIGMOID POLYP: Received in formalin are 2 fragment(s) of coates, soft tissue measuring 0.1 x 0.1 x 0.1 cm in aggregate submitted entirely in 1 cassette(s) /MIRA 04/22/2023 1843 Local . 01 Pathologist provided ICD-10: Z12.11 . 01 CPT . 757686, 297125, [id number] Specimen Comment: A courtesy copy of this report has been sent to [phone] Performed at: [address] [place] [address] [place] [address] [address], [place], [place] [id number] MD Torito Freedman MD Phone: [phone]
[2023-04-21] MEDS: LACTATED RINGERS 1,000 ML 42 ML IV (08:45)
[2023-04-21 08:50] VITALS: BP 149/92; PULSE 70; RESP 16; TEMP 36.6; O2SAT 97; BMI 45.4
--- NOTE | 2023-04-21 09:44 | P.HP_ITS ---
History of Present Illness History of Present Illness Date Patient Seen: 04/21/23 Time Patient Seen: 09:44 Chief complaint: Colonoscopy Narrative: 47-year-old male history of diverticular disease here screening colonoscopy. Previous colonoscopy 10-15 years ago for diverticular disease. No family history of intestinal malignancy. No new abdominal pain unintentional weight loss blood per rectum. [facility] Medical History Hypertriglyceridemia without hypercholesterolemia BMI 50.0-59.9, adult HTN (hypertension) Weight loss advised PRESTON on CPAP Asthma with exacerbation Urinary tract infection Otitis media Depression Insulin dependent type 2 diabetes mellitus Family History Father Cancer Mother Cancer Diabetes mellitus Hyperlipidemia Hypertension Depression Stroke Social History household members: spouse Smoking Status: Former smoker alcohol intake: current substance use type: marijuana Meds Home Medications and Allergies Home Medications Medication Instructions Recorded Confirmed Type albuterol sulfate 2.5 mg/3 mL See Rx Instructions .Route 11/15/21 04/21/23 Rx (0.083 %) solution for nebulization .COMPLEX #75 mL insulin syringes (disposable) 1 mL #500 ea 01/09/22 12/10/22 Rx flash glucose scanning reader #1 ea 11/07/22 12/10/22 Rx (FreeStyle Jodi 2 [place]) flash glucose sensor (FreeStyle #1 ea 12/10/22 12/10/22 Rx Jodi 2 Sensor kit) insulin human U-100 NPH-regulr See Rx Instructions .Route 12/10/22 04/21/23 Rx 70-30 mix 100 unit/mL subcutaneous .COMPLEX #60 mL susp (Humulin 70/30 U-100 Insulin) peg 3350-electrolytes 236 240 ml PO Q10M #4,000 mL 02/19/23 Rx gram-22.74 gram-6.74 gram-5.86 gram solution (Golytely) Allergies Allergy/AdvReac Type Severity Reaction Status Date / Time No Known Drug Allergies Allergy Verified 04/21/23 08:47 Exam Vital Signs (past 8 hours): - 04/21/23 08:50 Temperature 97.8 F Pulse Rate 70 Respiratory Rate 16 Blood Pressure 149/92 H Pulse Oximetry 97 Oxygen Delivery Method Room Air Oxygen Delivery Method Room Air Narrative Exam Narrative: General adult man alert oriented no acute distress Chest nonlabored respiration Extremities warm well perfused Assessment & Plan Assessment & Plan narrative: The patient requires colorectal screening and colonoscopy is recommended. Technical details were discussed. Risks, benefits, alternatives explained. Risks including but not limited to myocardial infarction, aspiration, bleeding, pain, missed lesion, incomplete examination, need for further radiographic studies, colonic perforation, and need for major abdominal surgery were discussed. All questions were answered to their satisfaction, and they are in agreement with this plan.
[2023-04-21 10:25] VITALS: BP 135/90; PULSE 66; RESP 12; O2SAT 96
[2023-04-21 10:30] VITALS: BP 133/90; PULSE 67; RESP 13; TEMP 36.9; O2SAT 96
--- NOTE | 2023-04-21 10:32 | P.OP.COLON_ITS ---
Operative Date/Time/Diagnoses Date of procedure: 04/21/23 Time of procedure: 10:32 Pre-op diagnosis: Colorectal screening Post-op diagnosis: other (Colonic polyps x3) Procedure & Clinicians Study performed: Colonoscopy and polypectomy Same procedure as scheduled: Yes Indications: Colorectal screening Surgeon: Dejan Blackman Procedure Notes Procedure in detail: The history and physical was performed/updated and the patient is ASA class is 3. The procedure was discussed in detail with the patient. Potential risks complications including infection, bleeding, missed diagnosis, perforation, need for surgery, and were explained. Their questions were answered and informed consent was obtained. Patient was brought to the procedure room and placed standard monitoring equipment. The patient's vital signs were monitored continuously throughout the entire procedure. Prior to starting time-out was performed. The patient was placed in the left lateral recumbent position. Procedural sedation was administered by anesthesia. Examination began with a thorough inspection of the perianal area there was no evidence of fissures, fistulae, external hemorrhoids or cutaneous malignancy. The colonoscopy scope was then placed into the anal canal and was advanced to the cecum, which was identified by the ileocecal valve, the appendiceal orifice and the confluence of the taenia. The scope was then slowly withdrawn examining colon thoroughly in all directions, irrigating it of any residual stool. The scope was retroflexed within the rectum The patient tolerated the procedure well. They will be discharged once criteria are met. The prep was of good/excellent quality. The withdrawl time was 12 minutes. FINDINGS * Ascending colon-5 mm polyp removed with biopsy forceps. * Transverse colon-5 mm polyp removed with cold snare * Sigmoid 5 mm polyp removed with biopsy forceps Specimen(s): other (Ascending transverse and sigmoid colonic polyps) Impression: Colonic polyps x3 Post-procedure Plan for aftercare: Follow-up is dependent on pathology findings likely 3 years.
[2023-04-21 10:35] VITALS: BP 134/89; PULSE 74; RESP 14; O2SAT 96
[2023-04-21 10:41] VITALS: BP 132/91; PULSE 61; RESP 12; TEMP 36.7; O2SAT 97
== END 2023-04-21 10:54 | disposition home or self-care (01) ==
PROVIDERS: Family Provider Family Medicine; PCP Family Medicine; Referring Provider Surgery; Visit Provider Surgery
PROC: 0DJD8ZZ Inspection of Lower Intestinal Tract, Via Natural or Artificial Opening Endoscopic (ICD-10-PCS; CPT 45378; principal; 2023-04-21 09:45)
DX: Z12.11 Encounter for screening for malignant neoplasm of colon (principal); D12.2 Benign neoplasm of ascending colon; D12.3 Benign neoplasm of transverse colon
CPT/HCPCS: 45385; 45380; 82962; J2704

== ENCOUNTER → 2023-05-14 12:53 | Outpatient (CLI) | payer OTHER, SELFPAY ==
--- NOTE | 2023-05-19 16:43 | DIAB.FU ---
Follow-up Diabetes Education Assessment Name: Grayson López (Rivas) Date: 05/14/23 Time: 105-205p Dx: Type II Diabetes Provider: Danie Rivas presents for Dm follow-up. States he has lost 50# since last visit. [place] very motivated to reduce kcal intake and manage his DM. Reports increased activity on weekends and fasting/lower kcal diet. States his goal is to get under 300#. As an adult, states he has never been under 311#. Reports 330# now. Has noticed big reduction in insulin needs since weight loss. Per PCP notes, insulin BID recommended. THis would also qualify him for CGM via his insurance. Rivas states CGM was denied. Recently moved with family to [place] from [place]. Very happy with the move. More ability to walk around town vs drive. May be interested in walking/biking to work when weather improves. Home life is less stressful. 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 Taking more time for himself. With move, has been eating out more due to kitchen being packed up. Getting sick of his pro/salad lunches, but interested in keeping veggies in meals. Diet Recall: 12p: salad and lean protein OR mac and cheese and hot dog 6-7p: burger meat, salad and 3c pasta OR eating out OR low carb snacks (pork rinds or beef jerky) Anthropometrics: Wt: 330# reported Last PCP wt: 387# Physical Activity: Active with work. No intentional activity during the day. Interested in gym at work. On weekends, he was moving q 75 min for 15 min, mostly resistance exercises. Self-Monitoring Blood Glucose: FBG often 120s per report, highest 160mg/dl. After lunch BG usually <200mg/dl. No numbers for review today. Diabetes Medications: NPH 70/30 1-2x per day (40u per report) Pertinent Labs: hgA1c 03/2022 7.4% Past Medical History: (Last Reviewed 04/21/23 @ 09:45 by Dejan Blackman MD) Asthma with exacerbation BMI 50.0-59.9, adult Depression HTN (hypertension) Hypertriglyceridemia without hypercholesterolemia Insulin dependent type 2 diabetes mellitus PRESTON on CPAP Otitis media Urinary tract infection Weight loss advised Intervention: This participant was very receptive. Provided appropriate educational handouts. Discussed the following topics: Recent blood sugar results and trends Medication management: insulin needs and changes Review of general nutrition recommendations and current intake Physical activity plan and impact on blood sugars vegetable intake strategies Created SMART goals for patient self-care and success. Goals: Chat with PCP about BP med Se and options- not discussed Try to incorporate some you time for stress management- met Follow-up with [facility] regarding CGM if insulin regimen changes- met Check FBG and HS- new Inquire about work gym use- new Keep veggies at meals- new Restart weekend exercises- new Follow-up: [facility] follow-up in 1 month. Rivas would like to f/u in June. Inge Doss RDN, [facility] Certified Diabetes Care and Siding Mechanic P: [phone] Thank you for this referral
== END ==
PROVIDERS: Family Provider Family Medicine; PCP Family Medicine; Referring Provider Family Medicine; Visit Provider Family Medicine
DX: E11.9 Type 2 diabetes mellitus without complications (principal); Z79.4 Long term (current) use of insulin; Z71.3 Dietary counseling and surveillance
CPT/HCPCS: G0108

== ENCOUNTER → 2023-06-18 13:53 | Outpatient (CLI) | payer OTHER, SELFPAY ==
--- NOTE | 2023-06-18 16:56 | DIAB.MNTFU ---
Follow-up Diabetes Medical Nutrition Therapy Assessment Name: Grayson López (Rivas) Date: 06/18/22 Time: 205-305p Dx: Type II Diabetes Rivas presents for follow-up. Reports higher kcal intake and sedentary behavior while on break from work x 1 month. Has recently returned to work. Started avoiding rice/noodles due to nature of larger portions when consuming these foods. Though did have teriyaki chx with rice today. BG check in clinic 1.5hr after was elevated at 214 mg/dl. Inconsistencies in taking insulin recently, but states he picked up new rx and will take as directed. Per PCP notes, should be taking TID. Unclear if this is reflected in rx though. Also, previously pt has had desire to take 70/30 BID with mealtime insulin for largest meal of the day. Still interested in CGM. Unclear of why last rx was declined. Seems steady in weight since last visit, maybe 5# more? Weigh in today was 346# with boots, keys, work accessories, etc. Previous wt 330#. Home life is ok. Has not scheduled with therapist recently. Work somewhat stressful. Diet Recall: 12p: chx quesadilla OR pulled pork sandwich OR teriyaki 6-7p: meat, potatoes, carrots OR pizza x 2-4 slices Anthropometrics: Wt: 346# with clothes and accessories Last RD wt: 330# Last PCP wt: 387# Physical Activity: Limited. Thought about buying a bike but finances are a barrier. Self-Monitoring Blood Glucose: Limited SMBG recently. Reports of BG in 170-200s. One report of BG of 70 with shaking, treated with lollipop. Did not recheck after. Diabetes Medications: NPH 70/30 Pertinent Labs: hgA1c 03/2022 7.4% Past Medical History: (Last Reviewed 04/21/23 @ 09:45 by Dejan Blackman MD) Asthma with exacerbation BMI 50.0-59.9, adult Depression HTN (hypertension) Hypertriglyceridemia without hypercholesterolemia Insulin dependent type 2 diabetes mellitus PRESTON on CPAP Otitis media Urinary tract infection Weight loss advised Nutrition Rx: Plate Method Nutrition Diagnosis: Self monitoring deficit r/t stage of change contemplation aeb pt report of limited testing recently but interested in restarting Excessive CHO intake r/t eating out choices aeb diet recall and BG >200mg/dl Intervention: This participant was very receptive. Provided appropriate educational handouts. Discussed the following topics: Blood sugar review and trends. Impact of food intake on results. Plate Method weight loss and metabolism Physical activity plan and progress Medication management: taking insulin as rxd SMBG: importance of frequent checks to determine insulin needs Mental health management Created SMART goals for patient self-care and success. Goals: Check FBG and HS- in progress Inquire about work gym use- in progress Keep veggies at meals- not met Restart weekend exercises- in progress Call therapist- new Check FBG- new Follow-up: [facility] follow-up in 2-[address] messaged provider workgroup to determine insulin rx. Inge Doss RDN, [facility] Certified Diabetes Care and Geothermal Powerplant Mechanic Helper P: [phone] Thank you for this referral
== END ==
PROVIDERS: Family Provider Family Medicine; PCP Family Medicine; Referring Provider Family Medicine; Visit Provider Family Medicine
DX: E11.9 Type 2 diabetes mellitus without complications (principal); Z79.4 Long term (current) use of insulin; Z71.3 Dietary counseling and surveillance
CPT/HCPCS: 97803

== ENCOUNTER → 2023-07-09 13:54 | Outpatient (CLI) | payer OTHER, SELFPAY ==
--- NOTE | 2023-07-09 17:18 | DIAB.FU ---
Follow-up Diabetes Education Assessment Name: Grayson López (Rivas) Date: 07/09/23 Time: 220-3p Dx: Type II Diabetes Rivas presents for follow-up DM visit. Reports higher carb meals resulting in 300mg/dl readings. Endorses symptoms of depression, resulting in sitting, eating chips and watching tv for long periods of time on days off. PCP had rx'd antidepressant per pt report, but Rivas states he had side effects and stopped taking. Was not replaced. Sees therapist, not always helpful, needing more feedback from therapist per report. Reports lower BG of 100 in morning and higher later in day. Skips breakfast and eats lunch and dinner. Continues to work on weight loss. Taking 70/30 1-2x per day. May benefit from different DM med regimen or adding mealtime insulin. Would benefit from new hga1c. Does not have PCP appt scheduled. Recent eye appt, some concerning results in left eye. Plans to return to eye doc in three months. Physical Activity: Running with dog 2x per week. Has access to gym at work, but feels guilty working out after work due to wanting to be home with kids. Self-Monitoring Blood Glucose: Reports FBG <130mg/dl but PP readings up to 300mg/dl. Diabetes Medications: NPH 70/30 Pertinent Labs: hgA1c 03/2022 7.4% Past Medical History: (Last Reviewed 04/21/23 @ 09:45 by Dejan Blackman MD) Asthma with exacerbation BMI 50.0-59.9, adult Depression HTN (hypertension) Hypertriglyceridemia without hypercholesterolemia Insulin dependent type 2 diabetes mellitus PRESTON on CPAP Otitis media Urinary tract infection Weight loss advised Intervention: This participant was very receptive. Provided appropriate educational handouts. Discussed the following topics: Recent blood sugar results and trends Medication management: would likely benefit from GLP1RA for weight loss and BG managment. If not, would benefit from meal time insulin and CGM. Reviewed different med options, SE, and actions of meds Review of general nutrition recommendations and current intake Physical activity plan and impact on blood sugars Therapy and mental health. Impact on overall health and ability to make changes. Created SMART goals for patient self-care and success. Goals: Restart weekend exercises- in progress Call therapist- met Check FBG- met Call PCP for appt and labs- new Follow-up: ED [facility] follow-up in 3-4 weeks Rivas would likely benefit from GLP1RA to support weight loss efforts and BG management. If this is not covered, would certainly benefit from some other DM lowering med, potentially mealtime insulin. We have explored CGM options and he wants a CGM. His insurance will not cover a CGM unless he is on three injections per day. Currently on 70/30 without mealtime insulin. Inge Doss RDN, [facility] Certified Diabetes Care and Gear Hobber Operator P: [phone] Thank you for this referral
== END ==
PROVIDERS: Family Provider Family Medicine; PCP Family Medicine; Referring Provider Family Medicine; Visit Provider Family Medicine
DX: E11.9 Type 2 diabetes mellitus without complications (principal); Z79.4 Long term (current) use of insulin; Z71.3 Dietary counseling and surveillance
CPT/HCPCS: G0108

== ENCOUNTER 2023-07-23 09:59 | Emergency (ER) | payer OTHER, SELFPAY ==
[2023-07-23 10:02] VITALS: BP 153/96; PULSE 88; RESP 14; TEMP 35.9; O2SAT 95; BMI 46.0
[2023-07-23] MEDS: TET,DIPH,PERTUSS(ACELL),VAC/PF 0.5 ML SYRINGE IM (11:15)
[2023-07-23 11:23] VITALS: BP 135/94; PULSE 77; RESP 18; TEMP 36.6; O2SAT 96
--- NOTE | 2023-07-23 12:10 | ED_ITS ---
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 There was profuse bleeding. He applied pressure and came to the emergency room. His tetanus is not up-to-date. He has well-controlled diabetes. He denies any numbness or tingling in his finger, no history of peripheral neuropathy, no history of bleeding disorder or anticoagulant. Related Data Previous Rx's Medication Instructions Recorded insulin syringes (disposable) 1 mL #500 ea 01/09/22 flash glucose scanning reader #1 ea 11/07/22 (FreeStyle Jodi 2 Ringgold) flash glucose sensor (FreeStyle #1 ea 12/10/22 Jodi 2 Sensor kit) albuterol sulfate 2.5 mg/3 mL See Rx Instructions .Route 05/19/23 (0.083 %) solution for nebulization .COMPLEX #75 mL insulin human U-100 NPH-regulr 50 unit (0.5 mL) SUBCUT .COMPLEX 06/19/23 70-30 mix 100 unit/mL subcutaneous #60 mL susp (Humulin 70/30 U-100 Insulin) Allergies Allergy/AdvReac Type Severity Reaction Status Date / Time No Known Drug Allergies Allergy Verified 07/23/23 10:02 Review of Systems <Lyly Ramos PA-C - Last Filed: 07/23/23 12:16> Review of Systems ROS Unobtainable: All systems reviewed & are unremarkable except as noted in HPI and below Patient History <Lyly Ramos PA-C - Last Filed: 07/23/23 12:16> Medical History Hypertriglyceridemia without hypercholesterolemia BMI 50.0-59.9, adult HTN (hypertension) Weight loss advised PRESTON on CPAP Asthma with exacerbation Urinary tract infection Otitis media Depression Insulin dependent type 2 diabetes mellitus Family History Father Cancer Mother Cancer Diabetes mellitus Hyperlipidemia Hypertension Depression Stroke Social History household members: spouse Smoking Status: Former smoker alcohol intake: current substance use type: marijuana Smoking Status: Former smoker alcohol intake frequency: holidays/special occasions only Substance Use Type: marijuana Exam <Lyly Ramos PA-C - Last Filed: 07/23/23 12:16> Narrative Exam Narrative: GENERAL: 47 year old patient appears stated age. Well-developed patient, in no acute distress. NEURO: AOx3. HEAD: Atraumatic. Normocephalic. EYES: Pupils equal round and reactive. Extraocular motions intact. No scleral icterus. No injection or drainage. ENT: Nose without bleeding or purulent drainage. Airway patent. RESPIRATORY: No distress. EXTREMITIES: No edema or joint tenderness. SKIN: 3 mm laceration the side of the finger between the MCP and PIP joint. Hemostasis achieved. Wound does not appear contaminated. Full flexion and extension of the finger with isolation at each joint, normal sensation, capillary refill 2 seconds. Initial Vital Signs Initial Vital Signs: Vital Signs Temperature 96.7 F L 07/23/23 10:02 Pulse Rate 88 07/23/23 10:02 Respiratory Rate 14 07/23/23 10:02 Blood Pressure 153/96 H 07/23/23 10:02 Pulse Oximetry 95 07/23/23 10:02 Oxygen Delivery Method Room Air 07/23/23 10:02 <Rashad Romeo MD - Last Filed: 07/23/23 13:34> Initial Vital Signs Initial Vital Signs: Vital Signs Temperature 96.7 F L 07/23/23 10:02 Pulse Rate 88 07/23/23 10:02 Respiratory Rate 14 07/23/23 10:02 Blood Pressure 153/96 H 07/23/23 10:02 Pulse Oximetry 95 07/23/23 10:02 Oxygen Delivery Method Room Air 07/23/23 10:02 Course <Lyly Ramos PA-C - Last Filed: 07/23/23 12:16> Orders Ordered: Discontinued Medications Diphtheria/Tetanus/Acell Pertussis (Tet,Diph,Pertuss(Acell),Vac/Pf 0.5 Ml Syringe) 0.5 ml IM .ONCE ONE Stop: 07/23/23 11:10 Last Admin: 07/23/23 11:15 Dose: 0.5 ml Documented By: TARA Vital Signs Vital signs: Vital Signs - 8 hr 07/23/23 10:02 07/23/23 11:23 Temperature 96.7 F L 98 F Pulse Rate 88 77 Respiratory Rate 14 18 Blood Pressure 153/96 H 135/94 H Pulse Oximetry 95 96 Oxygen Delivery Method Room Air Room Air <Rashad Romeo MD - Last Filed: 07/23/23 13:34> Orders Ordered: Discontinued Medications Diphtheria/Tetanus/Acell Pertussis (Tet,Diph,Pertuss(Acell),Vac/Pf 0.5 Ml Syringe) 0.5 ml IM .ONCE ONE Stop: 07/23/23 11:10 Last Admin: 07/23/23 11:15 Dose: 0.5 ml Documented By: TARA Vital Signs Vital signs: Vital Signs - 8 hr 07/23/23 10:02 07/23/23 11:23 Temperature 96.7 F L 98 F Pulse Rate 88 77 Respiratory Rate 14 18 Blood Pressure 153/96 H 135/94 H Pulse Oximetry 95 96 Oxygen Delivery Method Room Air Room Air MDM - Wound/Laceration <Lyly Ramos PA-C - Last Filed: 07/23/23 12:16> MDM Narrative Medical decision making narrative: Multiple etiologies for patient's symptoms considered including, but not limited to: Soft tissue injury, retained foreign body, fracture No evidence by history and mechanism for bony injury. Neurovascular exam is intact. Wound irrigated, cleaned and closed with Dermabond. Advised to watch for signs and symptoms of infection. Patient is a well controlled diabetic, does not have any peripheral neuropathy which would impair his ability to assess for infection or other concerns. Patient's symptoms improved over duration of stay with above-stated therapies. Findings and discharge diagnosis discussed with patient/family followed by zeferino murcia of understanding Return precautions discussed with patient/family whom verbalize understanding of diagnosis and plan Discharge Plan Departure Patient Disposition: Home Clinical Impression: Puncture wound of left middle finger Instructions: DI for Minor Laceration Activity Restrictions/Additional Instructions: *You have been diagnosed with left 3rd finger wound. This was closed with Dermabond super glue. If you do not wash this aggressively, it will stay in place for several days. If it does fall off, you can cover the injury with a Band-Aid. Your tetanus booster was updated today. There is no indication for antibiotics but if he noticed any signs of infection such as redness, increasing pain, pus, fever or redness of the finger, please come back for reassessment. *What to do: *Please continue to take your regular medications as directed. [ ] New medication prescriptions sent to your pharmacy: [ ] [ ] New medication written as a paper prescription [x] No new medications given *Please follow up with your primary care provider in 2-3 days, call for an appointment. Let them know you were seen in the Emergency Department and that we ask that you be seen in follow up. We will electronically transmit a record of today's note if your PCP is in our system *If you do not have a primary care provider please contact the [facility] Resource line at [phone]. They will ask some questions about your medical history and help get you set up with a doctor in the community. *Return to Emergency Department if you should have any new, worsening or concerning symptoms, such as [fever greater than 101 F, shaking chills, worse brennon pain, persistent vomiting or other concerning symptoms]. Prescriptions: No Action (DME) insulin syringes (disposable) 1 mL syringe See Rx Instructions .Route Qty: 500 3RF Rx Instructions: For twice a day insulin injections (DME) FreeStyle Jodi 2 Ringgold Misc See Rx Instructions .Route Qty: 1 0RF Rx Instructions: As directed albuterol sulfate 2.5 mg /3 mL (0.083 %) solution for nebulization See Rx Instructions .ROUTE .COMPLEX Qty: 75 1RF Dose Instruction: inhale one vial (2.5mg) via nebulizer four times daily As Needed for shortness of breath or wheezing Rx Instructions: inhale one vial (2.5mg) via nebulizer four times daily As Needed for shortness of breath or wheezing Humulin 70/30 U-100 Insulin 100 unit/mL (70-30) suspension 50 unit SUBCUT .COMPLEX Qty: 60 11RF Rx Instructions: 50 units subcutaneously every morning, 50 units at noon, and 50 units every night at bedtime (DME) FreeStyle Jodi 2 Sensor Kit See Rx Instructions .Route Qty: 1 12RF Rx Instructions: As directed Referrals: Trung Helton, DO [Primary Care Provider] - Stand Alone Forms: Patient Portal/API, Work Release Note ED Sign-out <Rashad Romeo MD - Last Filed: 07/23/23 13:34> Cosign ED Attending Cosignature Attestation: I was immediately available in the department for consultation. ?This documentation has been reviewed and I agree with assessment and plan. Supervised by Rashad Romeo MD
== END 2023-07-23 11:32 | disposition home or self-care (01) ==
PROVIDERS: Emergency Provider Physician Assistant; Family Provider Family Medicine; PCP Family Medicine
DX: S61.233A Puncture wound without foreign body of left middle finger without damage to nail, initial encounter (principal); X58.XXXA Exposure to other specified factors, initial encounter; Z23 Encounter for immunization
CPT/HCPCS: 90471; 99283; 90715

== ENCOUNTER → 2023-10-21 15:08 | Outpatient (CLI) | payer OTHER, SELFPAY ==
--- NOTE | 2023-10-29 17:07 | DIAB.FU ---
Follow-up Diabetes Education Assessment Name: Grayson López (Rivas) Date: 10/21/23 Time: 330-430p Dx: Type II Diabetes Rivas presents today for Dm follow-up. Interested in GLP1 RA. States his mother has been taking Semaglutide with successful results. Has not been approved for CGM. Now has regular insulin rx. When asked why he has been on 70/30 he reports it was what he could afford prior to current insurance coverage. June covid with BG in the 300s. Reports having dizzy spells during that time. Stress at work and home. Self care down: eating whatever; fast food at lunch, skipping breakfast, portions ok but not eating salads anymore. Sees therapist, but feels this is not very helpful. Therapist told him he may want to consider psych med, but he is not currently open to this. Physical Activity: Reduced since dog passed last month. Self-Monitoring Blood Glucose: Limited recently. Hyperglycemia with covid in Jun. Likely some elevations with recent hga1c of 7.6%. Diabetes Medications: NPH 70/30 50-75u in the am Regular insulin 5-10u at lunch Pertinent Labs: hgA1c 7.4% 03/2022 7.6% 09/2023 Past Medical History: (Last Updated 09/02/23 @ 10:07 by Niesha Morales PA-C) Asthma with exacerbation BMI 50.0-59.9, adult Depression HTN (hypertension) Hypertriglyceridemia without hypercholesterolemia Insulin dependent type 2 diabetes mellitus PRESTON on CPAP Otitis media Urinary tract infection Weight loss advised Intervention: This participant was very receptive. Provided appropriate educational handouts. Discussed the following topics: Stress management Medication management impact of illness and steroid meds on BG Review of general nutrition recommendations and current intake Created SMART goals for patient self-care and success. Goals: Practice stress management techniques Check BG and bring to next visit Follow-up: ED [facility] follow-up in 3-4 weeks. Likely would benefit from GLP1 RA given h/o trying to manage weight. If not covered, would rec switching insulin to long acting basal and fast acting bolus. Inge Doss RDN, [facility] Certified Diabetes Care and Silk Screener P: [phone] Thank you for this referral
== END ==
PROVIDERS: Family Provider Family Medicine; PCP Family Medicine; Referring Provider Family Medicine
DX: E11.9 Type 2 diabetes mellitus without complications (principal); Z79.4 Long term (current) use of insulin; Z71.3 Dietary counseling and surveillance
CPT/HCPCS: G0108

== ENCOUNTER → 2023-11-24 14:53 | Outpatient (CLI) | payer OTHER, SELFPAY ==
--- NOTE | 2023-12-23 14:14 | DIAB.MNTFU ---
Follow-up Diabetes Medical Nutrition Therapy Assessment Name: Grayson López (Riavs) Date: 11/24/23 Time: 305-410p Dx: Type II Diabetes Rivas presents for Dm follow-up. Reports rx for Rybelsus, oral GLP1RA. Some concerns by this RD on coverage with insurance for this. Recently BG have been better, though still often elevated per report. Has had difficulty with getting CGM covered. Reports continued stress with relationship with . Considering new therapist since he feels current one is not very helpful. Reports stress eating with depression and more junk food in the house. Reports purchases junk food and sometimes does not retort pre cooker resulting in more processed high CHO foods. Use to make lunch at work, which went well for BG. Considering this again. Diet recall indicates skipped breakfast, eating out at restaurant for lunch, and higher CHO meals at dinner. Feels discouraged by insurance not covering CGM, potentially not covering Rybelsus, and feels the regular insulin with lunch does not make a difference in BG. Anthropometrics: Ht: 5'11 Wt: 337.5# 09/2023 Physical Activity: No program, but reports more movement at work. Self-Monitoring Blood Glucose: Reports numbers are down from 300mg/dl, which is what they were two weeks ago. Recently highest is in the 200s. Yesterday BG in the 140-150mg/dl. No log book. Diabetes Medications: NPH 70/30 100u BID Regular insulin 5-10u at lunch Pertinent Labs: hgA1c 7.4% 03/2022 7.6% 09/2023 Past Medical History: (Last Updated 09/02/23 @ 10:07 by Niesha Morales PA-C) Asthma with exacerbation BMI 50.0-59.9, adult Depression HTN (hypertension) Hypertriglyceridemia without hypercholesterolemia Insulin dependent type 2 diabetes mellitus PRESTON on CPAP Otitis media Urinary tract infection Weight loss advised Nutrition Rx: Carbohydrates: Meal:45-60g Snack:15-30g Nutrition Diagnosis: Excessive CHO intake r/t stress eating and eating out aeb diet recall and pt report Intervention: This participant was very receptive. Provided appropriate educational handouts. Discussed the following topics: Blood sugar review and trends. Stress impact on BG Different GLP1 options and precautions/SE Strategies for reducing portion and eating out occurrences Created SMART goals for patient self-care and success. Goals: Practice stress management techniques- not met Check BG and bring to next visit - in progress Call pharmacy regarding new GLP1 rx- new Make lunch- new Look into potential new therapist options- new Follow-up: ED [facility] follow-up in 3-4 weeks Inge Doss RDN, [facility] Certified Diabetes Care and Shovel Handle Assembler P: [phone] Thank you for this referral
== END ==
PROVIDERS: Family Provider Family Medicine; PCP Family Medicine; Referring Provider Family Medicine
DX: E11.9 Type 2 diabetes mellitus without complications (principal); Z71.3 Dietary counseling and surveillance; Z79.4 Long term (current) use of insulin
CPT/HCPCS: 97803

== ENCOUNTER → 2023-12-23 15:20 | Outpatient (CLI) | payer OTHER, SELFPAY ==
--- NOTE | 2024-01-06 16:33 | DIAB.MNTFU ---
Follow-up Diabetes Medical Nutrition Therapy Assessment Name: Grayson López (Rivas) Date: 12/23/23 Time: 345-430p Dx: Type II Diabetes Rivas presents for Dm follow-up. Reports rx for Rybelsus, was not approved by insurance. RD called his insurance, and they informed that 3 month supply of injectable Semaglutide via [place] [facility] pharmacy would be $80. Rivas is in agreement with this plan. RD messaged PCP. Continues to endorse high stress at home with marriage. Feels that hanging with his children helps reduce stress. Less stress eating recently. reports has been making healthier meals recently and keeping less junk food in the home based on her own HTN issues. Seems to have some diabetes distress r/t stress at home and constantly feeling like insurance will not cover tools for his DM, ie CGM or Rybelsus. Feels a why bother attitude about making lifestyle changes as a result. Wants to do more exercise. Use to really enjoy making lunch at work. Feels much of his day is eating, sitting in his chair, and working. Anthropometrics: Ht: 5'11 Wt: 337.5# 09/2023 Physical Activity: No program, but reports 7-10 thousand steps per day at work, less on days off. Self-Monitoring Blood Glucose: Reports less SMBG lately. No FBG recently, but has been checking randomly and numbers are often 139-233mg/dl. Had one high number after dinner with soda of 282mg/dl. Diabetes Medications: NPH 70/30 100u BID Regular insulin 5-10u at lunch Pertinent Labs: hgA1c 7.4% 03/2022 7.6% 09/2023 Past Medical History: (Last Updated 09/02/23 @ 10:07 by Niesha Morales PA-C) Asthma with exacerbation BMI 50.0-59.9, adult Depression HTN (hypertension) Hypertriglyceridemia without hypercholesterolemia Insulin dependent type 2 diabetes mellitus PRESTON on CPAP Otitis media Urinary tract infection Weight loss advised Nutrition Rx: Carbohydrates: Meal:45-60g Snack:15-30g Nutrition Diagnosis: Excessive CHO intake r/t stress and diabetes distress aeb pt report and SMBG >180mg/dl at some meals Physical inactivity r/t limited motivation for movement on days off aeb pt report Intervention: This participant was very receptive. Provided appropriate educational handouts. Discussed the following topics: Blood sugar review a Diabetes distress Stress management Motivation for managing DM Rybelsus vs injectable Ozempic Eating out and strategies for reduced carb portions Created SMART goals for patient self-care and success. Goals: Call pharmacy regarding new GLP1 rx- met Make lunch- not met Look into potential new therapist options- not met Reduce carb portions when eating out- new Aim for 7000+ steps per day, even on days off- new Follow-up: ED [facility] follow-up in 2-[address]aged PCP about rx for Ozempic to [place] [facility]. Inge Doss RDN, [facility] Certified Diabetes Care and Secretary P: [phone] Thank you for this referral
== END ==
PROVIDERS: Family Provider Family Medicine; PCP Family Medicine; Referring Provider Family Medicine
DX: E11.9 Type 2 diabetes mellitus without complications (principal); Z79.4 Long term (current) use of insulin; Z71.3 Dietary counseling and surveillance
CPT/HCPCS: 97803

== ENCOUNTER → 2024-02-16 14:51 | Outpatient (CLI) | payer OTHER, SELFPAY ==
--- NOTE | 2024-02-16 15:11 | DIAB.FU ---
Follow-up Diabetes Education Assessment Name: Grayson López (Rivas) Date: 02/16/24 Time: 255-4p Dx: Type II Diabetes Rivas presents for Dm follow-up. Continues to feel that progress is difficult with diabetes. Seems his provider agreed to place rx for injectable GLP1. Rivas reports his insurance has not received the rx and no documentation in EMR of this either. RD messaged provider and provider's workgroup to send rx to appropriate pharmacy. 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 With these social concerns, diabetes tends to take a backseat per report. Has a therapist that specializes in substance abuse. States he needs a therapist that deals more with relationships. Is currently on leave from work. This has been beneficial for his diet. Eating more at home and more moderate CHO portions. This is a challenge when he is at work and eating out. During work hours had been eating at a Ethiopian restaurant with small scoop rice, protein, and extra veggies. Biggest challenge is Burmese fast food with chips and salsa, tacos, and beans with rice. Reports wanting to add more salads and non starch veggies. States food is often emotional for him. Feels GLP1 may be beneficial. No PCP visit scheduled. Due to labs this month. Anthropometrics: Ht: 5'11 Wt: 337.5# 09/2023 Physical Activity: No program, but reports 7-10 thousand steps per day at work, less on days off. Self-Monitoring Blood Glucose: Reports aiming for BG of 150-160 1-2 hours after meals. Often 160s, but has had a recent 320 mg/dl after candy. Diabetes Medications: NPH 70/30 100u BID Regular insulin 0-10u at lunch Pertinent Labs: hgA1c 7.4% 03/2022 7.6% 09/2023 Past Medical History: (Last Updated 09/02/23 @ 10:07 by Niesha Morales PA-C) Asthma with exacerbation BMI 50.0-59.9, adult Depression HTN (hypertension) Hypertriglyceridemia without hypercholesterolemia Insulin dependent type 2 diabetes mellitus PRESTON on CPAP Otitis media Urinary tract infection Weight loss advised Nutrition Rx: Carbohydrates: Meal:45-60g Snack:15-30g Nutrition Diagnosis: Excessive CHO intake r/t stress and diabetes distress aeb pt report and SMBG >180mg/dl at some meals Physical inactivity r/t limited motivation for movement on days off aeb pt report Intervention: This participant was very receptive. Provided appropriate educational handouts. Discussed the following topics: Blood sugar review Social barriers and impact on health Encouraged asking therapy group for a more appropriate therapist prn Reviewed eating out and portions Discussed strategies for adding veggies Encouraged PCP appt and labs Discussed GLP1 action and SE Created SMART goals for patient self-care and success. Goals: Reduce carb portions when eating out- improved Aim for 7000+ steps per day, even on days off- not discussed Call therapy office- new Make appt with PCP- new Complete labs - new Add salads/veggies- new Follow-up: ED [facility] follow-up in 3-4 weeks Inge Doss RDN, [facility] Certified Diabetes Care and Drywall Worker P: [phone] Thank you for this referral
== END ==
PROVIDERS: Family Provider Family Medicine; PCP Family Medicine; Referring Provider Family Medicine
DX: E11.9 Type 2 diabetes mellitus without complications (principal); Z79.4 Long term (current) use of insulin; Z71.3 Dietary counseling and surveillance
CPT/HCPCS: 97803

== ENCOUNTER 2024-03-14 10:49 | Emergency (ER) | payer OTHER, SELFPAY ==
--- NOTE | 2024-03-14 10:54 | ED.GENADULT ---
HPI - General Adult General Chief complaint: Wound/Laceration Stated complaint: Cut tip of left index finger Time Seen by Provider: 03/14/24 10:53 History of Present Illness HPI narrative: 48-year-old right-handed gentleman was using box toe cementer and cut the very tip of his left index finger. Comes in for further evaluation. This was done while he was at work. Related Data Home Medications Medication Instructions Recorded Confirmed albuterol sulfate 90 mcg/actuation 2 puff inhalation Q6H PRN 09/23/23 12/01/23 aerosol inhaler Previous Rx's Medication Instructions Recorded flash glucose sensor (FreeStyle #1 ea 12/10/22 Jodi 2 Sensor kit) insulin human U-100 NPH-regulr 50 unit (0.5 mL) SUBCUT .COMPLEX 06/19/23 70-30 mix 100 unit/mL subcutaneous #60 mL susp (Humulin 70/30 U-100 Insulin) albuterol sulfate 2.5 mg/3 mL See Rx Instructions .Route 08/25/23 (0.083 %) solution for nebulization .COMPLEX #75 mL inhalational spacing device #1 ea 09/02/23 (Flexichamber spacer) lisinopril 10 mg tablet 10 mg PO DAILY #90 tabs 09/02/23 insulin regular hum U-500 conc 500 See Rx Instructions SUBCUT 09/08/23 unit/mL(3 mL) subcut pen (Humulin QACLUNCH #6 mL R U-500 (Conc) Insulin Kwikpen) insulin syringes (disposable) 1 mL #500 ea 09/16/23 semaglutide 1 mg/dose (4 mg/3 mL) 1 mg (0.75 mL) SUBCUT QWEEK #3 mL 02/24/24 subcutaneous pen injector (Ozempic) Allergies Allergy/AdvReac Type Severity Reaction Status Date / Time No Known Drug Allergies Allergy Verified 03/14/24 11:04 Review of Systems Review of Systems Narrative: Pertinent positive and negative findings as per HPI Patient History Medical History Hypertriglyceridemia without hypercholesterolemia BMI 50.0-59.9, adult HTN (hypertension) Weight loss advised PRESTON on CPAP Asthma with exacerbation Urinary tract infection Otitis media Depression Insulin dependent type 2 diabetes mellitus Family History Father Cancer Mother Cancer Diabetes mellitus Hyperlipidemia Hypertension Depression Stroke Social History household members: spouse Smoking Status: Former smoker alcohol intake: current substance use type: marijuana Smoking Status: Former smoker alcohol intake frequency: holidays/special occasions only Substance Use Type: marijuana Exam Initial Vital Signs Initial Vital Signs: Vital Signs Temperature 98.1 F 03/14/24 11:01 Pulse Rate 78 03/14/24 11:01 Respiratory Rate 18 03/14/24 11:01 Blood Pressure 145/89 H 03/14/24 11:01 Pulse Oximetry 98 03/14/24 11:01 Oxygen Delivery Method Room Air 03/14/24 11:01 General: Alert appropriate in no acute distress Respiratory: Able to speak in full sentences, no obvious respiratory distress Skin: No obvious rashes, warm and dry Neurologic: Grossly intact no obvious asymmetries or abnormalities Psych: appropriate insight and affect, cooperative Extremity: Tip of the left index finger has an approximately 4 mm in diameter area where the epithelium has been removed. Bleeding is controlled. No indication for sutures Course Vital Signs Vital signs: Vital Signs - 8 hr 03/14/24 11:01 Temperature 98.1 F Pulse Rate 78 Respiratory Rate 18 Blood Pressure 145/89 H Pulse Oximetry 98 Oxygen Delivery Method Room Air Medical Decision Making [facility] Narrative Medical decision making narrative: 48-year-old gentleman with laceration to the tip of his left index finger Is approximately 4 mm in diameter epithelium only removed. Surgicel is placed over the tip and a Band-Aid is replaced. There was no indication for stitches or antibiotics. The area is quite tender and patient was given ibuprofen and Tylenol to pain Tibal L&I forms are filled out He is safe for discharge Discharge Plan Departure Patient Disposition: Home Clinical Impression: Finger laceration Qualifiers: Encounter type: initial encounter Finger: index finger Damage to nail status: without damage Foreign body presence: without foreign body Laterality: left Qualified Code(s): S61.211A - Laceration without foreign body of left index finger without damage to nail, initial encounter Activity Restrictions/Additional Instructions: Thank you for coming in today You did cut off a slice of the tip of your finger but, it does involve just the very superficial level. Fingertips have all lot of nerve endings and these injuries are quite painful. It should feel better within 24 hours. I have given you some Surgicel, foamy stuff that helps with clotting. Unfortunately there is no indication for stitches as there is nothing to actually so back together. Please keep a Band-Aid on the wound as long as it is open. If you have increasing redness, drainage or pain you do need to be re-evaluated him Prescriptions: No Action Humulin 70/30 U-100 Insulin 100 unit/mL (70-30) suspension 50 unit SUBCUT .COMPLEX Qty: 60 11RF Rx Instructions: 50 units subcutaneously every morning, 50 units at noon, and 50 units every night at bedtime albuterol sulfate 2.5 mg /3 mL (0.083 %) solution for nebulization See Rx Instructions .ROUTE .COMPLEX Qty: 75 1RF Dose Instruction: inhale one vial (2.5mg) via nebulizer four times daily As Needed for shortness of breath or wheezing Rx Instructions: inhale one vial (2.5mg) via nebulizer four times daily As Needed for shortness of breath or wheezing Humulin R U-500 (Conc) Kwikpen 500 unit/mL (3 mL) insulin pen See Rx Instructions SUBCUT QACLUNCH Qty: 6 0RF Rx Instructions: 5 units before lunch if blood sugar is 200 or less; 10unit before lunch if blood sugar is above 200. Dose will be adjusted accordingly as patient reports blood sugars to office (DME) insulin syringes (disposable) 1 mL syringe See Rx Instructions .Route Qty: 500 3RF Rx Instructions: For twice a day insulin injections Ozempic 1 mg/dose (4 mg/3 mL) pen injector 1 mg SUBCUT QWEEK Qty: 3 5RF (DME) FreeStyle Jodi 2 Sensor Kit See Rx Instructions .Route Qty: 1 12RF Rx Instructions: As directed lisinopril 10 mg tablet 10 mg PO DAILY Qty: 90 1RF (DME) Flexichamber Spacer See Rx Instructions .Route Qty: 1 0RF Rx Instructions: As directed albuterol sulfate 90 mcg/actuation HFA aerosol inhaler 2 puff inhalation Q6H PRN Referrals: Trung Helton DO [Primary Care Provider] - Stand Alone Forms: Patient Portal/API
[2024-03-14 11:01] VITALS: BP 145/89; PULSE 78; RESP 18; TEMP 36.7; O2SAT 98; BMI 46.0
== END 2024-03-14 11:28 | disposition home or self-care (01) ==
LOC: ED 11:20
PROVIDERS: Emergency Provider Emergency Medicine; Family Provider Family Medicine; PCP Family Medicine
DX: S61.211A Laceration without foreign body of left index finger without damage to nail, initial encounter (principal); W26.9XXA Contact with unspecified sharp object(s), initial encounter
CPT/HCPCS: 99281

== ENCOUNTER → 2024-04-07 15:08 | Outpatient (CLI) | payer OTHER, SELFPAY ==
--- NOTE | 2024-04-07 15:41 | DIAB.FU ---
Follow-up Diabetes Education Assessment Name: Grayson López (Rivas) Date: 04/07/24 Time: 315-430p Dx: Type II Diabetes Rivas presents for Dm follow-up. Reports continued stress at work and home. Endorses recent URI that has impacted his BG, also currently using steroid inhaler, which he feels does increased his BG. Up to 300u 70/30 and 0-40u regular insulin. Would benefit from adding SGLT2i or GLP1 or perhaps better basal bolus insulin type. Open to pump therapy. Wants CGM which has helped him reduce his BG and wt. Insurance will approve Jardiance for 3 months before considerations for GLP1. He is wanting to switch insurance types for better coverage. No PCP visit scheduled. Due for labs. Anthropometrics: Ht: 5'11 Wt: 337.5# 09/2023 Physical Activity: No program, but reports 7-10 thousand steps per day at work, less on days off. Self-Monitoring Blood Glucose: Reports FBG in the 150s and later in the day 250-300s. Placed FSL3 plus sample. After trial he can decide on G7 or FSL. Will coordinate with provider's office. States in the past there were too many phone calls and hoops to navigate with [employer] company. Diabetes Medications: NPH 70/30 100u TID Regular insulin 0-40u Pertinent Labs: hgA1c 7.4% 03/2022 7.6% 09/2023 Past Medical History: (Last Updated 09/02/23 @ 10:07 by Niesha Morales PA-C) Asthma with exacerbation BMI 50.0-59.9, adult Depression HTN (hypertension) Hypertriglyceridemia without hypercholesterolemia Insulin dependent type 2 diabetes mellitus PRESTON on CPAP Otitis media Urinary tract infection Weight loss advised Intervention: This participant was very receptive. Provided appropriate educational handouts. Discussed the following topics: Blood sugar review Social barriers and impact on health Reviewed potential for pump therapy Troubleshooting for CGM Previous experience with CGM and benefits Revisiting getting a new therapist SGLT2i v GLP1 v insulin v pump therapy Created SMART goals for patient self-care and success. Goals: Call therapy office- not met Make appt with PCP- not met Complete labs - not met Add salads/veggies- in progress Consider pump therapy- new Wear CGM x 15 days- new Follow-up: ED [facility] follow-up in 2-3 weeks. Will see how CGM impacts Rivas's BG. If he wants to move forward again, we will try to navigate the CGm process with either G7 or FSL3+. If he decides to try pump therapy, we will also move forward with navigating that process with PCP. Would certainly benefit from a change in diabetes care/medication. Would especially benefit from GLP1 given goal of wt loss and DM management. Wants to wait on SGLt2i at this time. Will continue to monitor. Inge Doss, ED, GENE Certified Diabetes Care and Food Stand Manager P: [phone] Thank you for this referral
== END ==
LOC: DIET 15:09
PROVIDERS: Family Provider Family Medicine; PCP Family Medicine; Referring Provider Family Medicine
DX: E11.65 Type 2 diabetes mellitus with hyperglycemia (principal); Z79.4 Long term (current) use of insulin; Z71.3 Dietary counseling and surveillance
CPT/HCPCS: G0108

== ENCOUNTER → 2024-04-21 15:56 | Outpatient (CLI) | payer OTHER, SELFPAY ==
--- NOTE | 2024-05-05 16:19 | DIAB.FU ---
Follow-up Diabetes Education Assessment Name: Grayson López (Rivas) Date: 04/21/24 Time: 410-5p Dx: Type II Diabetes Rivas presents for Dm follow-up. He continues with 3 injections per day. BG seems much improved with recent CGM sample. He would like to try Dexcom to compare before ordering. States he may change insurance plan due to struggles with getting proper DM tools and medications. States he would still be interested in GLP1 since he has continued hunger and food noise even after eating. Reports a h/o food scarcity as a child, which seems to contribute to this as well. Anthropometrics: Ht: 5'11 Wt: 337.5# 09/2023 Self-Monitoring Blood Glucose: Wore FSL Sample. TIR: 1% very high 15% high 83% in range 1% low 0% very low avmg/dl GMI: 6.7% variability 28.1% Diabetes Medications: NPH 70/30 100u BID Regular insulin 0-40u Pertinent Labs: hgA1c 7.4% 03/2022 7.6% 09/2023 Past Medical History: (Last Updated 09/02/23 @ 10:07 by DINAH GeorgeC) Asthma with exacerbation BMI 50.0-59.9, adult Depression HTN (hypertension) Hypertriglyceridemia without hypercholesterolemia Insulin dependent type 2 diabetes mellitus PRESTON on CPAP Otitis media Urinary tract infection Weight loss advised Intervention: This participant was very receptive. Provided appropriate educational handouts. Discussed the following topics: Blood sugar review and trends Impact of GLP1 on hunger, action of med Hx with food scarcity and impact on eating now CGM options and differences Created SMART goals for patient self-care and success. Goals: Consider pump therapy- d/c at this time Wear CGM x 15 days- met Wear CGM x 10.5 days- new Message RD preferred CGM option- new Follow-up: ED [facility] follow-up in 3-4 weeks. Inge Doss RDN, GENE Certified Diabetes Care and Estate Planning Attorney P: [phone] Thank you for this referral
== END ==
PROVIDERS: Family Provider Family Medicine; PCP Family Medicine; Referring Provider Family Medicine
DX: E11.9 Type 2 diabetes mellitus without complications (principal); Z79.4 Long term (current) use of insulin; Z71.3 Dietary counseling and surveillance
CPT/HCPCS: G0108

== ENCOUNTER → 2024-05-18 16:18 | Outpatient (CLI) | payer OTHER, SELFPAY ==
--- NOTE | 2024-06-22 17:24 | DIAB.FU ---
Follow-up Diabetes Education Assessment Name: Grayson López (Rivas) Date: 05/18/24 Time: 420-520p Dx: Type II Diabetes Rivas presents for Dm follow-up. He continues with 3 injections per day.Reports CGM has been denied by insurance again. Plans to change insurance for the new year. Endorses eating lower CHO foods. States sometimes when stressed, higher carb intake. Continued challenges with marriage and work. Seeing therapist again. States his therapist had previously rec vp legal affairs about his divorce. He is now interested in this. He is feeling very frustrated with his Dm, understandably. Reports feeling as though he cannot get what he needs to manage his Dm, ie CGM and/or GLP1. Endorses work stress, home stress and health stress. Anthropometrics: Ht: 5'11 Wt: 337.5# 09/2023 Self-Monitoring Blood Glucose: Overall, pretty good TIR. Some elevations 1-3x per day with meals. TIR: 4% very high 19% high 77% in range 0% low 0% very low avmg/l std dev: 42mg/dl GMI: 7% variation: 27.2% Diabetes Medications: NPH 70/30 100u BID Regular insulin 0-40u Pertinent Labs: hgA1c 7.4% 03/2022 7.6% 09/2023 Past Medical History: (Last Updated 09/02/23 @ 10:07 by Niesha Morales PA-C) Asthma with exacerbation BMI 50.0-59.9, adult Depression HTN (hypertension) Hypertriglyceridemia without hypercholesterolemia Insulin dependent type 2 diabetes mellitus PRESTON on CPAP Otitis media Urinary tract infection Weight loss advised Intervention: This participant was very receptive. Provided appropriate educational handouts. Discussed the following topics: Stress management and impact on overall health and BG Stress eating Potential for GLP1 and CGM inthe new year with new insurance Diabetes distress s/s Created SMART goals for patient self-care and success. Goals: Wear CGM x 10.5 days- met Message RD preferred CGM option- met Discuss legal resources again with therapist- new Follow-up: ED [facility] follow-up in 3-4 weeks. MANDY will message PCP in June about CGM and GLP1 nIge Doss RDN, GENE Certified Diabetes Care and Gate Tender P: [phone] Thank you for this referral
== END ==
PROVIDERS: Family Provider Family Medicine; PCP Family Medicine; Referring Provider Family Medicine
DX: E11.9 Type 2 diabetes mellitus without complications (principal); Z71.3 Dietary counseling and surveillance; Z79.4 Long term (current) use of insulin
CPT/HCPCS: G0108

== ENCOUNTER → 2024-06-28 16:01 | Outpatient (CLI) | payer OTHER, SELFPAY | PROVIDERS: Family Provider Family Medicine; PCP Family Medicine; Referring Provider Family Medicine | DX: E11.9 Type 2 diabetes mellitus without complications (principal); Z71.3 Dietary counseling and surveillance; Z79.4 Long term (current) use of insulin; Z79.85 Long-term (current) use of injectable non-insulin antidiabetic drugs | CPT/HCPCS: 97803 ==

== ENCOUNTER → 2024-08-09 15:45 | Outpatient (CLI) | payer OTHER, SELFPAY ==
--- NOTE | 2024-08-09 17:43 | DIAB.FU ---
Follow-up Diabetes Education Assessment Name: Grayson López (Rivas) Date: 08/09/24 Time: 355-430p Dx: Type II Diabetes Reports down 14# over 3 weeks, but actually -23# per last PCP visit and today's at home weigh-in. Had very severe n/v/d the week he tried Ozempic. States he is unclear if this was from the GLP1 or from illness in the household, but seems likely from GLP1. Eating mostly protein and veggies right now. Cut out refined sugars and soda. Some recent constipation from diverticulitis per report. Will discuss more next visit. Some questions regarding CGM coverage. Seems his insurance did cover this, but was not as affordable as he had hoped. We reviewed a coupon option. Taking regular insulin at meals but does not feel this does enough. Is amenable to an insulin pump, which this RD thinks would be beneficial for both BG results and reduced insulin needs with efficiency of insulin with pump therapy, therefore opportunity for wt loss. Anthropometrics: Ht: 5'11 Wt: 352# 07/2024 ; 329# reported today 337.5# 09/2023 Self-Monitoring Blood Glucose: Wore CGm earlier this month. Checking some FBG and pc readings. FBG 150s, up to 200mg/dl and later in the day range 140-150mg/dl. CGM indicates good time in range. TIR: 0% very high 11% high 89% in range 0% low 0% very low avmg/l std dev: mg/dl GMI: 6.9% variation: 17.9% Diabetes Medications: Basaglar 50-60u BID Regular insulin 0-40u Pertinent Labs: hgA1c 7.4% 03/2022 7.6% 09/2023 7.2% 07/2024 Past Medical History: (Last Updated 09/02/23 @ 10:07 by Niesha Morales PA-C) Asthma with exacerbation BMI 50.0-59.9, adult Depression HTN (hypertension) Hypertriglyceridemia without hypercholesterolemia Insulin dependent type 2 diabetes mellitus PRESTON on CPAP Otitis media Urinary tract infection Weight loss advised Intervention: This participant was very receptive. Provided appropriate educational handouts. Discussed the following topics: SE of GLP1 Pro/cons insulin pump and types available Diet changes that are working for him CGM coupon program Diverticulitis symptoms and exacerbation triggers Created SMART goals for patient self-care and success. Goals: Check out CGM coupon Follow-up: ED [facility] follow-up in 2-[address] will message PCP about potential for changing to rapid acting insulin and insulin pump therapy. Inge Doss RDN, [facility] Certified Diabetes Care and City Editor P: [phone] Thank you for this referral
== END ==
PROVIDERS: Family Provider Family Medicine; PCP Family Medicine; Referring Provider Family Medicine
DX: E11.9 Type 2 diabetes mellitus without complications (principal); K57.92 Diverticulitis of intestine, part unspecified, without perforation or abscess without bleeding; K59.00 Constipation, unspecified; R11.2 Nausea with vomiting, unspecified; R19.7 Diarrhea, unspecified; Z71.3 Dietary counseling and surveillance; Z79.4 Long term (current) use of insulin
CPT/HCPCS: G0108

== ENCOUNTER → 2024-09-20 15:46 | Outpatient (CLI) | payer OTHER, SELFPAY ==
--- NOTE | 2024-10-07 09:52 | DIAB.FU ---
Follow-up Diabetes Education Assessment Name: Grayson López (Rivas) Date: 09/20/24 Time: 430-520p Dx: Type II Diabetes Rivas presents for follow-up DM visit. States he was filling in with 70/30 insulin after running out of glargine. Needs to bead picker rapid acting insulin. Endorses depression and no therapist currently. Stress at home with marriage. Stress at work. BG going well but wt loss has stalled. Not currently being consistent about meal time insulin. Anthropometrics: Ht: 5'11 Wt: 320# reported 09/20/2024 329# reported 08/2024 352# 07/2024 337.5# 09/2023 Self-Monitoring Blood Glucose: Using Jodi. Improved TIR with reduced time >180mg/dl. TIR: 0% very high 8% high 92% in range 0% low 0% very low avmg/l std dev: mg/dl GMI: 6.8% variation: 16.4% Last TIR: 0% very high 11% high 89% in range 0% low 0% very low avmg/l std dev: mg/dl GMI: 6.9% variation: 17.9% Diabetes Medications: Basaglar 50-60u BID Regular insulin 0-40u-- in consistent Aspart- not using Pertinent Labs: hgA1c 7.4% 03/2022 7.6% 09/2023 7.2% 07/2024 Past Medical History: (Last Updated 09/02/23 @ 10:07 by Niesha Morales PA-C) Asthma with exacerbation BMI 50.0-59.9, adult Depression HTN (hypertension) Hypertriglyceridemia without hypercholesterolemia Insulin dependent type 2 diabetes mellitus PRESTON on CPAP Otitis media Urinary tract infection Weight loss advised Intervention: This participant was very receptive. Provided appropriate educational handouts. Discussed the following topics: Types of insulin and action Injection site rotations Omnipod potential and benefits and precautions Therapy options Impact of depression on health and DM care Created SMART goals for patient self-care and success. 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 working with PCP office to facilitate potential for insulin pump therapy. Inge Doss RDN, [facility] Certified Diabetes Care and Fpga Engineer P: [phone] Thank you for this referral
== END ==
PROVIDERS: Family Provider Family Medicine; PCP Family Medicine; Referring Provider Family Medicine
DX: E11.9 Type 2 diabetes mellitus without complications (principal); Z71.3 Dietary counseling and surveillance; Z79.4 Long term (current) use of insulin; F32.A Depression, unspecified
CPT/HCPCS: G0108

== ENCOUNTER → 2024-11-03 15:46 | Outpatient (CLI) | payer OTHER, SELFPAY ==
--- NOTE | 2024-11-04 16:46 | DIAB.FU ---
Addendum entered by Inge Doss 11/04/24 16:54: 11/04/24 phone call: TIR >90% today. Denies any questions at this time. pump therapy seems to be going well at this time. Will check in next week. Original Note: Follow-up Diabetes Education Assessment Name: Grayson López (Rivas) Date: 11/03/24 Time: 4-5p Dx: Type II Diabetes Rivas presents for follow-up DM visit. Has brought Omnipod 5 pump compatible with Dexcom CGM. Reports supplementing lately with 70/30 insulin. Last injection was 6am this morning. Provider approved settings based on current TDD and wt: TDD: 68u Basal rate 1.4u /hour IC: 1:6 ISF: 25mg/dl Target 110mg/dl Correct above 110mg/dl Basal rate 2x highest basal rate Insulin duration 3h will need rx for G7 sensors, insulin vials, and refill pods. RD has messaged PCP and workgroup. Anthropometrics: Ht: 5'11 Wt: 313# reported 10/2024 320# reported 09/20/2024 329# reported 08/2024 352# 07/2024 337.5# 09/2023 Self-Monitoring Blood Glucose: Using Jodi. Similar TIR but with some increase in hyperglycemia recently. TIR: 0% very high 11% high 89% in range 0% low 0% very low avmg/l std dev: mg/dl GMI: 6.8% variation: 19.2% Last TIR: 0% very high 8% high 92% in range 0% low 0% very low avmg/l std dev: mg/dl GMI: 6.8% variation: 16.4% Diabetes Medications: Basaglar 50-60u BID---- 30u BID Aspart: 10-15u with meals Pertinent Labs: hgA1c 7.4% 03/2022 7.6% 09/2023 7.2% 07/2024 Past Medical History: (Last Updated 09/02/23 @ 10:07 by Niesha Morales PA-C) Asthma with exacerbation BMI 50.0-59.9, adult Depression HTN (hypertension) Hypertriglyceridemia without hypercholesterolemia Insulin dependent type 2 diabetes mellitus PRESTON on CPAP Otitis media Urinary tract infection Weight loss advised Intervention: This participant was very receptive. Provided appropriate educational handouts. Discussed the following topics: Insuln pump and CGM education, precautions, and self placement Review of treating lows Review of bolusing and correction for elevations Precautions for elevated BG or pod failures Created SMART goals for patient self-care and success. 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 Due to the long holiday weekend, advised Rivas to contact Omnod Customer Care prn over the weekend. he agreed to this plan. Inge Doss RDN, GENE Certified Diabetes Care and Electrical Mechanic P: [phone] Thank you for this referral
== END ==
PROVIDERS: Family Provider Family Medicine; PCP Family Medicine; Referring Provider Family Medicine
DX: E11.65 Type 2 diabetes mellitus with hyperglycemia (principal); Z96.41 Presence of insulin pump (external) (internal); Z79.4 Long term (current) use of insulin; Z71.3 Dietary counseling and surveillance
CPT/HCPCS: G0108

== ENCOUNTER → 2024-11-08 06:54 | Outpatient (CLI) | payer OTHER, SELFPAY ==
[2024-11-08 07:58] LABS: Alanine Aminotransferase 23 IU/L (<50); Albumin 4.4 g/dL (3.5-5.0); Albumin Globulin Ratio 1.8 (1.0-2.8); Alkaline Phosphatase 80 U/L (38-126); Aspartate Aminotransferase 20 IU/L (17-59); BUN Creatinine Ratio 17.4 (6-22); Bilirubin Total 0.4 mg/dL (0.2-1.3); Blood Urea Nitrogen 15 mg/dL (9-20); Carbon Dioxide 23 mmol/L (22-32); Chloride 106 mmol/L (98-107); Cholesterol 182 mg/dL (140-199); Estimated Glomerular Filt Rate > 60 mL/min (>60); Globulin 2.5 g/dL (1.7-4.1); Glucose 153 mg/dL (70-99); HDL Cholesterol 32 mg/dL (40-60); HEMOLYSIS < 15 (0-50); LDL Cholesterol Calculated 101 mg/dL (<100); Sodium 139 mmol/L (137-145); Total Protein 6.9 g/dL (6.3-8.2); Triglycerides 244 mg/dL (35-150)
[2024-11-08 08:07] LABS: Hemoglobin A1C% w Est Avg Glu 6.2 % (4.0-6.0)
== END ==
PROVIDERS: Family Provider Family Medicine; PCP Family Medicine; Referring Provider Family Medicine; Visit Provider Family Medicine
DX: E11.9 Type 2 diabetes mellitus without complications (principal); Z79.4 Long term (current) use of insulin; E78.1 Pure hyperglyceridemia; I10 Essential (primary) hypertension
CPT/HCPCS: 36415; 80053; 80061; 83036

== ENCOUNTER → 2024-11-10 10:17 | Outpatient (CLI) | payer OTHER, SELFPAY ==
--- NOTE | 2024-11-10 16:37 | DIAB.FU ---
Follow-up Diabetes Education Assessment Name: Grayson López (Rivas) Date: 11/10/24 Time: 5595-5901k Dx: Type II Diabetes Rivas presents for follow-up DM visit. Improved hgA1c recently, <7% Wearing Omnipod with success. Recent PCP visit encouraged trying GLP1 again. Pt plans to try again next week. Reporting pros/cons of pump: Likes the ease, not carrying pens, can bolus at any time, overall convenience. Does not like the frequency of pod changes, which has been q 1-2 days. Eating BID. Trying to choose lower CHO options. Though pump reports indicate high CHO reporting. States he has been entering CHO into pump to correct BG, even when not eating CHO. Also, sometimes bolusing late for meals. Reports he has not called for a new therapist. Continues to have some challenges in his marriage. Added stress with work and home life reported. Provider approved settings based on current TDD and wt: TDD: 68u Basal rate 1.4u /hour IC: 1:6---- 1:4.8 (20% change given elevations postprandial) ISF: 25mg/dl--- 28 (pt report slow to correct autocorrection, will trial 12% change) Target 110mg/dl Correct above 110mg/dl Basal rate 2x highest basal rate Insulin duration 3h Anthropometrics: Ht: 5'11 Wt: 313# reported 10/2024 320# reported 09/20/2024 329# reported 08/2024 352# 07/2024 337.5# 09/2023 Self-Monitoring Blood Glucose: Similar TIR with slight increase in hyperglycemia, still meeting time in range goal. TIR: 1% very high 13% high 86% in range 0% low 0% very low avmg/l std dev: 32mg/dl GMI: % variation: 21.7% Last TIR: 0% very high 11% high 89% in range 0% low 0% very low avmg/l std dev: mg/dl GMI: 6.8% variation: 19.2% Diabetes Medications: Aspart via insulin pump Pertinent Labs: hgA1c 7.4% 03/2022 7.6% 09/2023 7.2% 07/2024 6.2% 10/2024 Past Medical History: (Last Updated 09/02/23 @ 10:07 by Niesha Morales PA-C) Asthma with exacerbation BMI 50.0-59.9, adult Depression HTN (hypertension) Hypertriglyceridemia without hypercholesterolemia Insulin dependent type 2 diabetes mellitus PRESTON on CPAP Otitis media Urinary tract infection Weight loss advised Intervention: This participant was very receptive. Provided appropriate educational handouts. Discussed the following topics: ISF and IC settings Bolus timing Behavioral health resources Using correction vs false CHO Created SMART goals for patient self-care and success. Goals: Wear new pump-- met Bolus for CHO intake- in progress Will try low dose Ozempic next week- new Bolus pre meal- new Call therapist - new Follow-up: ED [facility] follow-up in one week via messaging and review of reports remotely. 1:1 follow-up in 3 weeks. Inge Doss RDN, [facility] Certified Diabetes Care and Instructor Of Spanish P: [phone] Thank you for this referral
== END ==
PROVIDERS: Family Provider Family Medicine; PCP Family Medicine; Referring Provider Family Medicine
DX: E11.65 Type 2 diabetes mellitus with hyperglycemia (principal); Z71.3 Dietary counseling and surveillance; Z79.4 Long term (current) use of insulin; Z96.41 Presence of insulin pump (external) (internal)
CPT/HCPCS: G0108

== ENCOUNTER → 2024-12-01 16:09 | Outpatient (CLI) | payer OTHER, SELFPAY ==
--- NOTE | 2024-12-13 15:18 | DIAB.FU ---
Follow-up Diabetes Education Assessment Name: Grayson López (Rivas) Date: 12/01/24 Time: 430-530p Dx: Type II Diabetes Rivas presents for follow-up DM visit. Reports his Dexcom G7 was not covered for refills. RD messaged workgroup to determine barrier, prior auth? or do we need to change to barbra? Also needs to change rx to 15 pods per month vs 10. Additionally, needs more insulin vials. Reports he has made diet changes. Reduced intake at [place] restaurant from large burrito, beans, chips to 2 tacos. Also when eating fast food, will only choose a burger alone. Endorses increased water intake. States his pump settings did not seem aggressive enough for correction. Based on TDD, would likely benefit from reduced ISF and basal rate. Plans to retry low dose Ozempic. Has been bolusing more pre meal with pump. Plans to call therapist, but has not done this yet. Provider approved settings based on current TDD and wt: TDD: 68u--- 71.2u Basal rate 1.4u /hour--- changed today 1.7u/hour IC: 1:6---- 1:4 ISF: 25mg/dl--- 28--- changed today to 20mg/dl Target 110mg/dl Correct above 110mg/dl Basal rate 2x highest basal rate Insulin duration 3h Anthropometrics: Ht: 5'11 Wt: 318# reported 11/2024 313# reported 10/2024 320# reported 09/20/2024 329# reported 08/2024 352# 07/2024 337.5# 09/2023 Self-Monitoring Blood Glucose: Increased hyperglycemia since last visit. Still meeting ADA goals, but increased BG from last visit. TIR: 2% very high 21% high 77% in range 0% low 0% very low avmg/l std dev: 37mg/dl GMI: % variation: 23% Last TIR: 1% very high 13% high 86% in range 0% low 0% very low avmg/l std dev: 32mg/dl GMI: % variation: 21.7% Diabetes Medications: Aspart via insulin pump Pertinent Labs: hgA1c 7.4% 03/2022 7.6% 09/2023 7.2% 07/2024 6.2% 10/2024 Past Medical History: (Last Updated 09/02/23 @ 10:07 by Niesha Morales PA-C) Asthma with exacerbation BMI 50.0-59.9, adult Depression HTN (hypertension) Hypertriglyceridemia without hypercholesterolemia Insulin dependent type 2 diabetes mellitus PRESTON on CPAP Otitis media Urinary tract infection Weight loss advised Intervention: This participant was very receptive. Provided appropriate educational handouts. Discussed the following topics: ISF and IC settings Diet changes Bolusing for meals Troubleshooting CGM and insulin access Created SMART goals for patient self-care and success. Goals: Will try low dose Ozempic next week- in progress Bolus pre meal- met Call therapist - in progress Trial new pump settings- new Follow-up: [facility] follow-up in 3-[address] messaged workgroup regarding CGM rx. May need reduced insulin needs if starting GLP1. Will wait on updating pod and insulin rx changes. Inge Doss RDN, CDCES Certified Diabetes Care and Leasing Assistant P: [phone] Thank you for this referral
== END ==
LOC: DIET 16:10
PROVIDERS: Family Provider Family Medicine; PCP Family Medicine; Referring Provider Family Medicine
DX: E11.65 Type 2 diabetes mellitus with hyperglycemia (principal); Z71.3 Dietary counseling and surveillance; Z79.4 Long term (current) use of insulin; Z96.41 Presence of insulin pump (external) (internal)
CPT/HCPCS: G0108

== ENCOUNTER → 2024-12-23 15:44 | Outpatient (CLI) | payer OTHER, SELFPAY ==
--- NOTE | 2024-12-28 10:58 | DIAB.FU ---
Follow-up Diabetes Education Assessment Name: Grayson López (Rivas) Date: 12/23/24 Time: 4-445p Dx: Type II Diabetes Rivas presents for follow-up DM visit. Running out of pods due to rx needing update for changing q 2 days. Sometimes supplementing insulin injection to help elongate pod use. Needing potential prior auth for Dexcom G7 or to switch to FSL depending on insurance. Also needing insulin pen needles for when needing pen injections. RD coordinated with RN to update rx to improve pt experience/coverage. Up to 0.5mg Ozempic x 3 weeks without side effect. Would eventually like to be able to reduce or d/c insulin, which seems like a potential with GLP1 use. Reduced appetite reported. Eating sometimes only 2x per day as a result. Staying hydrated. some constipation since starting GLP1 but improved lately. Reports some weight loss with clothing feeling loose. Need ISF and IC changes to pump to improve BG results postprandial. Settings: TDD: 68u--- 71.2u--- na (not correct due to some outside injections Basal rate 1.4u /hour--- 1.7u/hour IC: 1:6---- 1:4 ISF: 25mg/dl--- 28--- 20mg/dl---- changed to 15 Target 110mg/dl Correct above 110mg/dl Basal rate 2x highest basal rate Insulin duration 3h Anthropometrics: Ht: 5'11 Wt: 318# reported 11/2024 313# reported 10/2024 320# reported 09/20/2024 329# reported 08/2024 352# 07/2024 337.5# 09/2023 Self-Monitoring Blood Glucose: Improved TIR and reduced hyperglycemia. TIR: 0% very high 15% high 85% in range 0% low 0% very low avmg/l std dev: mg/dl GMI: 6.9% variation: % Last TIR: 2% very high 21% high 77% in range 0% low 0% very low avmg/l std dev: 37mg/dl GMI: % variation: 23% Diabetes Medications: Aspart via insulin pump Pertinent Labs: hgA1c 7.4% 03/2022 7.6% 09/2023 7.2% 07/2024 6.2% 10/2024 Past Medical History: (Last Updated 09/02/23 @ 10:07 by Niesha Morales PA-C)Asthma with exacerbation BMI 50.0-59.9, adult Depression HTN (hypertension) Hypertriglyceridemia without hypercholesterolemia Insulin dependent type 2 diabetes mellitus PRESTON on CPAP Otitis media Urinary tract infection Weight loss advised Intervention: This participant was very receptive. Provided appropriate educational handouts. Discussed the following topics: ISF and IC settings Diet changes and appetite SE of GLP1 and trying to eat min TID small freq meals/snacks Troubleshooting CGM, pen needle, and pod rx Created SMART goals for patient self-care and success. 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 Inge Doss RDN, GENE Certified Diabetes Care and Patent Prosecution Paralegal P: [phone] Thank you for this referral
== END ==
PROVIDERS: Family Provider Family Medicine; PCP Family Medicine
DX: E11.65 Type 2 diabetes mellitus with hyperglycemia (principal); Z79.85 Long-term (current) use of injectable non-insulin antidiabetic drugs; K59.00 Constipation, unspecified; Z79.4 Long term (current) use of insulin; Z96.41 Presence of insulin pump (external) (internal); Z71.3 Dietary counseling and surveillance
CPT/HCPCS: G0108

== ENCOUNTER → 2025-01-19 15:45 | Outpatient (CLI) | payer OTHER, SELFPAY ==
--- NOTE | 2025-02-17 10:48 | DIAB.MNTFU ---
Follow-up Diabetes Medical Nutrition Therapy Assessment Name: Grayson López (Rivas) Date: 01/19/25 Time: 4-430p Dx: Type II Diabetes Rivas presents for follow-up DM visit. States Ozempic is really helping, no nausea. States he has enough CGM and pods at this time. Still waiting on PA for Dexcom G7. Pods now lasting three days with GLP1 helping reduce BG. Some constipation, BM q 3 days. Does not like avocado. Open to other fiber options. No desire for soda, no cravings. Less joint pain reported recently as well. Diet recall: 930a: 2 chx strips 12p: nothing 2 days per week OR wolof chx with veggies OR 2 tacos with a few chips D: nothing 2x per week OR mixed greens and protein Hs: banana with pb or nothing 1/2 gallon per day Settings: TDD: 68u--- 71.2u--- Basal rate 1.4u /hour--- 1.7u/hour IC: 1:6---- 1:4 ISF: 25mg/dl--- 28--- 20mg/dl---- changed to 15 Target 110mg/dl Correct above 110mg/dl Basal rate 2x highest basal rate Insulin duration 3h Anthropometrics: Ht: 5'11 Wt: 305# reported 01/2025 318# reported 11/2024 313# reported 10/2024 320# reported 09/20/2024 329# reported 08/2024 352# 07/2024 337.5# 09/2023 Self-Monitoring Blood Glucose: Improved TIR and reduced hyperglycemia. In goal per ADA. TIR: 0% very high 4% high 96% in range 0% low 0% very low avmg/l std dev: 23mg/dl GMI: 6.6% variation: 16.7% Last TIR: 0% very high 15% high 85% in range 0% low 0% very low avmg/l std dev: mg/dl GMI: 6.9% variation: % Diabetes Medications: Aspart via insulin pump Pertinent Labs: hgA1c 7.4% 03/2022 7.6% 09/2023 7.2% 07/2024 6.2% 10/2024 Past Medical History: (Last Updated 09/02/23 @ 10:07 by Niesha Morales PA-C)Asthma with exacerbation BMI 50.0-59.9, adult Depression HTN (hypertension) Hypertriglyceridemia without hypercholesterolemia Insulin dependent type 2 diabetes mellitus PRESTON on CPAP Otitis media Urinary tract infection Weight loss advised Nutrition Rx: Carbohydrates: Meal:45-60gSnack:15-30g Nutrition Diagnosis: Inconsistent energy intake r/t skipped meal/snack times with reduced appetite aeb diet recall and reported constipation Predicted inadequate fiber intake r/t limited fruit and whole grains aeb diet recall and constipation Intervention: This participant was very receptive. Provided appropriate educational handouts. Discussed the following topics: ISF and IC settings Diet changes and appetite SE of GLP1 and trying to eat min TID small freq meals/snacks Troubleshooting CGM, pen needle, and pod rx Created SMART goals for patient self-care and success. 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
== END ==
LOC: DIET 15:46
PROVIDERS: Family Provider Family Medicine; PCP Family Medicine
DX: E11.9 Type 2 diabetes mellitus without complications (principal); Z71.3 Dietary counseling and surveillance; Z79.85 Long-term (current) use of injectable non-insulin antidiabetic drugs; Z79.4 Long term (current) use of insulin; Z96.41 Presence of insulin pump (external) (internal)
CPT/HCPCS: 97803

== ENCOUNTER → 2025-02-17 15:14 | Outpatient (CLI) | payer OTHER, SELFPAY ==
--- NOTE | 2025-02-17 16:20 | DIAB.MNTFU ---
Follow-up Diabetes Medical Nutrition Therapy Assessment Name: Grayson López (Rivas) Date: 02/17/25 Time: 330-4p Dx: Type II Diabetes Rivas presents for follow-up DM visit. Recent HgA1c continued in goal at 6.2%. States he was disappointed that is was not lower. States he feels the Ozempic tends to wear off by the end of the week. Endorses 10# gain recently. Was excited to be headed toward <300#, but up form 305# to 315#. BG well managed. Same TDD as last visit essentially. States he thinks he needs to add activity. Endorses depression with marriage life. Looking for ways to get out of the house, but also enjoys spending time with children. Insurance prefers FSL over Dexcom per report. He discussed this with PCP. RD just messaged workgroup to update two rxs: CGM type to FSL2+ and compatible OP5. Endorses continued constipation, though improved from q 3 days to q other. Did try fiber supplement, but felt this did not help. Eating BID most day. Did not try protein shake. Usually eating lunch and dinner, sometimes watermelon as HS snack. Avoiding candy at night by sometimes eating fruit. Settings: TDD: 68u--- 71.2u--- 71u Basal rate 1.4u /hour--- 1.7u/hour IC: 1:6---- 1:4 ISF: 25mg/dl--- 28--- 20mg/dl---- changed to 15 Target 110mg/dl Correct above 110mg/dl Basal rate 2x highest basal rate Insulin duration 3h Physical Activity: No program. Aims for 5000 steps per day. States he is fairly sedentary at home at the end of work day. Anthropometrics: Ht: 5'11 Wt: 305# reported 01/2025 318# reported 11/2024 313# reported 10/2024 320# reported 09/20/2024 329# reported 08/2024 352# 07/2024 337.5# 09/2023 Self-Monitoring Blood Glucose: meeting goals for TIR, some increase in BG since last visit. TIR: 0% very high 10% high 90% in range 0% low 0% very low avmg/l std dev: 27mg/dl GMI: 6.7% variation: 19.2% Last TIR: 0% very high 4% high 96% in range 0% low 0% very low avmg/l std dev: 23mg/dl GMI: 6.6% variation: 16.7% Diabetes Medications: Aspart via insulin pump Pertinent Labs: hgA1c 7.4% 03/2022 7.6% 09/2023 7.2% 07/2024 6.2% 10/2024 6.2% 01/2025 Past Medical History: (Last Updated 09/02/23 @ 10:07 by Niesha Morales PA-C)Asthma with exacerbation BMI 50.0-59.9, adult Depression HTN (hypertension) Hypertriglyceridemia without hypercholesterolemia Insulin dependent type 2 diabetes mellitus PRESTON on CPAP Otitis media Urinary tract infection Weight loss advised Nutrition Rx: Carbohydrates: Meal:45-60gSnack:15-30g Nutrition Diagnosis: Inconsistent energy intake r/t skipped meal/snack times with reduced appetite aeb diet recall and reported constipation Predicted inadequate fiber intake r/t limited fruit and whole grains aeb diet recall and constipation Intervention: This participant was very receptive. Provided appropriate educational handouts. Discussed the following topics: Constipation MNT Eating freqency Physical activity HgA1c goals for ADA and AACE Created SMART goals for patient self-care and success. Goals: Eat TID- in progress Try protein shake- in progress Call insurance about CGM preference- met Consider fiber supplement- met Call RD in one week if rx is not updated for CGM/OP5- new Add protein shake- new Follow-up: [facility] follow-up in 3-4 weeks Inge Doss RDN, GENE Certified Diabetes Care and Produce Service Team Member P: [phone] Thank you for this referral
== END ==
LOC: DIET 15:14
PROVIDERS: Family Provider Family Medicine; PCP Family Medicine; Referring Provider Family Medicine
DX: E11.9 Type 2 diabetes mellitus without complications (principal); Z71.3 Dietary counseling and surveillance; Z79.4 Long term (current) use of insulin; Z96.41 Presence of insulin pump (external) (internal); Z79.85 Long-term (current) use of injectable non-insulin antidiabetic drugs
CPT/HCPCS: 97803

== ENCOUNTER → 2025-03-14 15:19 | Outpatient (CLI) | payer OTHER, SELFPAY ==
--- NOTE | 2025-03-14 16:17 | DIAB.MNTFU ---
Follow-up Diabetes Medical Nutrition Therapy Assessment Name: Grayson López (Rivas) Date: 03/14/25 Time: 330-4p Dx: Type II Diabetes Rivas presents for follow-up DM visit. Bg continues in goal. Approved for FSL and Dex and also approved now for Dexcom. States he is unsure which he will stay with, but likes that Dexcom can be calibrated. Eating 4x per day States he thinks Ozempic does nothing now, though BG are still in goal without significant increase in insulin. Appetite has perhaps increased with more frequent eating and BM have improved to daily. Interested in increasing to 2mg Ozempic weekly to restart weght loss per report. Still interested in increasing physical activity. Reports weighing self daily, but thinks this may not be good for him. Recently stopped weigh in for a week, which this RD would agree with. 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 Wants to be <300# per report. Settings: TDD: 68u--- 71.2u--- 71u----74.9u Basal rate 1.4u /hour--- 1.7u/hour IC: 1:6---- 1:4 ISF: 25mg/dl--- 28--- 20mg/dl---- changed to 15 Target 110mg/dl Correct above 110mg/dl Basal rate 2x highest basal rate Insulin duration 3h Physical Activity: No program. Aims for 5000 steps per day. States he is fairly sedentary at home at the end of work day. Interested in jump rope x 1 min per day. Anthropometrics: Ht: 5'11 Wt: 310# reported 02/2025 305# reported 01/2025 318# reported 11/2024 313# reported 10/2024 320# reported 09/20/2024 329# reported 08/2024 352# 07/2024 337.5# 09/2023 Self-Monitoring Blood Glucose: meeting goals for TIR, similar to last visit TIR: 0% very high 11% high 89% in range 0% low 0% very low avmg/l std dev: 28mg/dl GMI: 6.8% variation: 18.9% Last TIR: 0% very high 10% high 90% in range 0% low 0% very low avmg/l std dev: 27mg/dl GMI: 6.7% variation: 19.2% Diabetes Medications: Aspart via insulin pump Pertinent Labs: hgA1c 7.4% 03/2022 7.6% 09/2023 7.2% 07/2024 6.2% 10/2024 6.2% 01/2025 Past Medical History: (Last Updated 09/02/23 @ 10:07 by Niesha Morales PA-C)Asthma with exacerbation BMI 50.0-59.9, adult Depression HTN (hypertension) Hypertriglyceridemia without hypercholesterolemia Insulin dependent type 2 diabetes mellitus PRESTON on CPAP Otitis media Urinary tract infection Weight loss advised Nutrition Rx: Carbohydrates: Meal:45-60gSnack:15-30g Nutrition Diagnosis: Inconsistent energy intake r/t skipped meal/snack times with reduced appetite aeb diet recall and reported constipation-- improved Predicted inadequate fiber intake r/t limited fruit and whole grains aeb diet recall and constipation -- improved Physical inactivity r/t stage of change aeb pt report - new Intervention: This participant was very receptive. Provided appropriate educational handouts. Discussed the following topics: Weight management Pro/cons increase in GLP1 Physical activity goals and strategies for realistic change Diabetes management progress Differences pro/cons Dexcom vs FSL weight change vs LBM changes Created SMART goals for patient self-care and success. Goals: Call RD in one week if rx is not updated for CGM/OP5- d/c Add protein shake- not discussed Try adding jump rope safely - new Follow-up: [facility] follow-up in 5 weeks Inge Doss RDN, GENE Certified Diabetes Care and Justice Court Judge P: [phone] Thank you for this referral
== END ==
LOC: DIET 15:20
PROVIDERS: Family Provider Family Medicine; PCP Family Medicine; Referring Provider Family Medicine
DX: E11.9 Type 2 diabetes mellitus without complications (principal); Z71.3 Dietary counseling and surveillance; Z79.85 Long-term (current) use of injectable non-insulin antidiabetic drugs; Z79.4 Long term (current) use of insulin; Z96.41 Presence of insulin pump (external) (internal)
CPT/HCPCS: 97803